=== PATIENT | female | born 1960 | race Caucasian/White ===

== ENCOUNTER 2019-05-11 06:00 | Outpatient (RCR) | payer MEDICARE, MEDICAID, SELFPAY | END 2019-06-06 00:01 | LOC: LAB 06:00 | PROVIDERS: Family Provider Family Medicine; Visit Provider Family Medicine | DX: E87.6 Hypokalemia (principal); G35 Multiple sclerosis | CPT/HCPCS: 80053; 80061; 84439; 84443; 85025 ==

== ENCOUNTER 2019-11-29 13:06 | Outpatient (CLI) | payer MEDICARE, MEDICAID, SELFPAY ==
--- NOTE | 2019-11-29 13:00 | XRR_ITS ---
PROCEDURE INFORMATION: Exam: XR Abdomen, 1 View Exam date and time: 11/29/2019 2:01 PM Age: 59 years old Clinical indication: Condition or disease; Other: Calculus of urinary bladder; Prior surgery; Surgery date: 6+ months; Surgery type: PT has peg tube also. Kidney; Additional info: 6 month check TECHNIQUE: Imaging protocol: XR of the abdomen. Views: Frontal supine view of the abdomen. 1 View. COMPARISON: No relevant prior studies available. FINDINGS: Tubes, catheters and devices: A suprapubic catheter is present in the projection of the central pelvis. Gastrointestinal tract: Normal. No bowel dilation. There is moderate diffuse colonic fecal stasis present. A gastrostomy tube is in place in the stomach. Organs: There are 2 circumscribed calcified densities which likely represent stones within the urinary bladder. These densities measure 19.8 mm x 30 mm and 18.2 mm x 26.6 mm. Bones/joints: Unremarkable. The kidneys are obscured by bowel gas XR/XR [id number] IMPRESSION: 1. Negative for acute GI abnormalities. 2. Diffuse moderate colonic fecal stasis . 3. There are 2 calcified urinary bladder stones 4. Gastrostomy tube is in the a a stomach 5. Suprapubic catheter is in the central pelvis
== END 2019-11-29 13:07 | disposition home or self-care (01) ==
LOC: RAD 13:06
PROVIDERS: PCP Family Medicine; Visit Provider Urology
DX: N21.0 Calculus in bladder (principal); Z96.0 Presence of urogenital implants
CPT/HCPCS: 74018

== ENCOUNTER 2021-12-20 16:00 | Inpatient (IN) | payer MEDICARE, MEDICAID, SELFPAY ==
--- NOTE | 2021-12-20 16:22 | XRR_ITS ---
PROCEDURE INFORMATION: Exam: XR Chest Exam date and time: 12/20/2021 5:38 PM Age: 61 years old Clinical indication: Shortness of breath; Additional info: Covid TECHNIQUE: Imaging protocol: Radiologic exam of the chest. Views: 1 view. COMPARISON: CR Chest 1 [place] [id number] 05/01/2019 11:41 AM FINDINGS: Lungs: The lung bases are suboptimally assessed due to technique however the upper lungs are clear of focal consolidation. There is an ill-defined right medial basilar opacity which may represent posterior basilar atelectasis versus pneumonia. Clinical correlation and follow-up should be obtained. A dense opacity in the left retrocardiac region is again noted, likely left lower lobe collapse as noted on prior CT exam. Findings suggest chronic or recurrent central airway obstruction. Follow-up reassessment by CT should be considered to exclude postobstructive process. Pleural spaces: Unremarkable. No pleural effusion. No pneumothorax. Heart/Mediastinum: Cardiac silhouette appears normal in size. No obvious vascular congestion. Bones/joints: No acute osseous findings. Other findings: Single view was submitted. XR/XR chest 1V portable [id number] IMPRESSION: Probable right medial basilar opacity and left lower lobe collapse as described above.
--- NOTE | 2021-12-20 16:41 | ED_ITS ---
Documented by User: Harman Sandoval MD 12/22/21 02:30 HPI - SOB/Dyspnea General: Chief Complaint: COVID symptoms Stated Complaint: sob covid positive Time Seen by Provider: 12/20/21 16:41 Limitations: altered mental status and physical limitation History of Present Illness: HPI Narrative: Ms. Wing is a 61-year-old lady with, per chart review, severe multiple sclerosis, history of suprapubic catheter with history of recurrent urosepsis presenting for shortness of breath with reported COVID-positive test. History is otherwise severely limited as the patient provides no clinical history and report from EMS was limited. Additionally assisted did not call a report on this patient. The course, associated symptoms, intensity, exacerbating or relieving factors, or any other meaningful history are unclear at time of assessment. Supplemental information provided by patient's mother is that typically the patient is more talkative and approximately 10 days ago began to deteriorate as she typically does when she gets sick. She has been treated in the outpatient setting for urinary tract infection though unsure of exactly what antibiotic. She is nonambulatory at baseline however patient's mother largely seems to minimize extent of MS related debility however I suppose it is possible that this is markedly different than patient's baseline. Review of Systems General: Reports: ROS unobtainable due to medical condition PFSH ED PFSH: Medical History (Updated 12/21/21 @ 15:09 by Rocky Pool MD) Bladder stone Blocked suprapubic catheter Feeding by G-tube History of ESBL E. coli infection Multiple sclerosis Port-A-Cath in place Recurrent UTI Suprapubic catheter VRE (vancomycin-resistant Enterococci) infection Surgical History (Updated 12/21/21 @ 15:07 by Rocky Pool MD) S/P percutaneous endoscopic gastrostomy (PEG) tube placement Family History Brother Multiple sclerosis Father , AT AGE 80 Polycythemia Social History Smoking and tobacco status: never smoked Alcohol intake: never Housing: Senior Care Marital status: Single Current occupational status: disabled History of recent travel: No Physical Exam Const: COMMON NORMALS: alert GENERAL APPEARANCE: ill appearing and frail appearing HENMT: COMMON NORMALS: normocephalic and atraumatic HEAD & SCALP: normocephalic and atraumatic OTHER: Dry mucous membranes Eye: COMMON NORMALS: conjunctivae normal CONJUNCTIVA: Yes conjunctivae normal SCLERA: sclerae normal Neck/C-Spine: COMMON NORMALS: supple GENERAL: Yes trachea midline Resp: EFFORT & INSPECTION: Yes tachypneic AUSCULTATION: rhonchi Cardio: COMMON NORMALS: regular rhythm RATE: tachycardic RHYTHM: regular rhythm GI: COMMON NORMALS: Soft to palpation PALPATION: Yes Soft to palpation and No Tenderness to palpation present (GI) Extremity: NARRATIVE EXTREMITY EXAM: Apparent contracture deformities GENERAL: Yes normal exam except as noted and No edema Neuro: SENSORIUM/ORIENTATION: Yes alert, Yes Orientation impaired and Yes somnolent Psych: MEMORY/COGNITION: Yes memory grossly impaired and Yes cognition grossly impaired Procedures Central Line Placement Right Femoral: Time Out Performed: Yes Patient Placed on Monitor/Pulse Ox: Yes MD Prep: mask, gown and gloves Central Line Prep: Povidone-Iodine 1%, Chlorhexidine scrub and sterile drapes applied Local Anesthetic: lidocaine 1% and with epi Amount of anesthesia used (mL): 6 Ultrasound Used for Placement: Yes Central Line Lumen Inserted: triple Post Procedure: sutured in place, good blood return, all ports aspirated, flushed, capped and sterile dressing applied Post Procedure X-Ray: tip of catheter in good position Patient Tolerated Procedure: well Complications: none Course 2 ED course: - Patient was seen and evaluated by me at bedside - Patient placed on cardiac monitors, IV access obtained - Initial evaluation notable for ill appearance, limited history as above - Outside records were requested and patient does have positive COVID test from sending facility - Extensive time was spent attempting to obtain labs and IV access. Ultimately, once patient's mother arrived and we obtained consent for central line this was placed and postplacement x-ray was reviewed - Labs and xrays personally interpreted by me - Imaging notable for bibasilar opacities on chest x-ray. CT head negative for acute pathology. CT chest abdomen pelvis notable for bilateral lower lobe pneumonia. Additionally patient has bladder stones which are longstanding, there is mucosal thickening of the distal rectosigmoid colon of unclear etiology. Additional renal stones with mild fullness of renal pelvis. - Labs notable for leukocytosis with neutrophil predominance. Metabolic panel with evidence of dehydration including hyponatremia. CRP elevated. Urinalysis still concerning for urinary tract infection. - Upon serial reexamination after treatment the patient was mildly improved with IV fluids and broad-spectrum antibiotics though still remains markedly ill. In addition to antibiotics and 30 cc/kg fluid bolus I ordered remdesivir for COVID positive pneumonia with new oxygen requirement. - Based on patient history, evaluation, and testing as interpreted the most likely cause of the patient's condition is multifactorial including exacerbation of underlying medical conditions, sepsis secondary to likely urinary tract infection, COVID 19 with acute hypoxic respiratory failure requiring supplemental oxygen. - Discussed with hospitalist service and given high degree of comorbidities and high acuity of patient condition hospitalist recommends consideration of transfer. - The results of ED evaluation were discussed with the patient's mother including plan for transfer due to requirement for level of care not available if discharged to prevent significant worsening/deterioration. Patient likely needs neurology as we do not have on-call as well as other specialty services - Patient care handed off to overnight ED physician Dr. Dickson pending continued search for accepting facility. Note: Click bubbles or prepopulated bobby in note writing are used for assistance with data collection and billing and are inherently more limited than narrative and other text portions of this note. Please use narrative for additional clinical history and defer to narrative/free test for any case of contradictory information. If information appears in only free text or click bubble it should be considered present or absent as reported. Please contact note travel writer for clarifications of clinical information or contradictory information. MDM is a brief summary, contradictory or erroneous seeming information should be clarified and full note should be reviewed. Vital Signs: Vital signs: Vital Signs Temperature 98.1 F 12/21/21 21:45 Pulse Rate 81 12/22/21 00:30 Respiratory Rate 21 H 12/22/21 00:30 Blood Pressure 163/77 12/22/21 00:30 Pulse Oximetry 94 12/22/21 00:30 MDM - SOB/Dyspnea Medical Decision Making 61-year-old lady with history of severe MS presenting to the emergency department due to COVID 19 with new oxygen requirement. Additionally patient has reportedly been treated for urinary tract infection for approximately 8 days. Patient is ill in appearance and after unfortunate delay due to difficulty obtaining IV access patient found to have likely COVID-pneumonia with acute hypoxic respiratory failure, questionable superimposed bacterial pneumonia, evidence of urinary tract infection. Treated with broad-spectrum antibiotics and remdesivir as well as 30 cc/kg fluid bolus. After discussion with hospitalist service we will plan to explore transfer. Patient's mother updated at bedside. Medical Records I reviewed the patient's medical records. Lab Data I reviewed the patient's lab results. : 12/21/21 06:13 12/21/21 06:13 Labs/Radiology: Radiology Impressions Chest X-Ray 12/20/21 16:22 IMPRESSION: Probable right medial basilar opacity and left lower lobe collapse as described above. Chest/Abdomen/Pelvis CT 12/20/21 18:29 IMPRESSION: Bilateral lower lobe pneumonia. IMPRESSION: 1. There are bladder stones. A percutaneous bladder catheter is in place. 2. There is mucosal thickening of the distal rectosigmoid colon. Differential includes nonspecific colitis versus neoplasm. 3. There are large right renal calculi and mild fullness of the right renal pelvis. Head CT 12/20/21 18:29 IMPRESSION: No acute intracranial findings. Pelvis X-Ray 12/20/21 23:49 IMPRESSION: Satisfactory right femoral line position. Laboratory Results WBC 15.7 10^3/uL (4.0-10.0) H 12/21/21 06:13 RBC 3.42 10^6/uL (4.1-5.3) L 12/21/21 06:13 Hgb 10.5 g/dL (11.5-15.3) L 12/21/21 06:13 Hct 28.9 % (37.0-47.0) L 12/21/21 06:13 MCV 84.5 fl (81-99) 12/21/21 06:13 MCH 30.7 pg (28.0-34.0) 12/21/21 06:13 MCHC 36.3 g/dL (30.0-36.0) H 12/21/21 06:13 RDW 13.6 % (12.1-15.1) 12/21/21 06:13 Plt Count 206 10^3/cmm (130-400) D 12/21/21 06:13 MPV 9.5 fL (7.4-10.4) 12/21/21 06:13 Neut % (Auto) 92.0 % 12/21/21 06:13 Lymph % (Auto) 3.9 % 12/21/21 06:13 [place] % (Auto) 3.2 % 12/21/21 06:13 Eos % (Auto) 0.1 % 12/21/21 06:13 Baso % (Auto) 0.2 % 12/21/21 06:13 Neut # (Auto) 14.47 10^3/uL (1.8-7.7) H 12/21/21 06:13 Lymph # (Auto) 0.6 10^3/uL (0.8-4.8) L 12/21/21 06:13 [place] # (Auto) 0.5 10^3/uL (0.2-0.9) 12/21/21 06:13 Eos # (Auto) 0.0 10^3/uL (0.0-0.8) 12/21/21 06:13 Baso # (Auto) 0.0 10^3/uL (0.0-0.1) 12/21/21 06:13 Nucleated RBC % (auto) 0 % 12/21/21 06:13 Nucleated RBCs # 0.0 /100WBC 12/21/21 06:13 Specimen Type Arterial 12/20/21 17:05 Sample Site Radial, right 12/20/21 17:05 ABG pH 7.45 (7.35-7.45) 12/20/21 17:05 ABG pCO2 36.0 mmHg (35-45) 12/20/21 17:05 ABG pO2 82.1 mmHg (80.0-100.0) 12/20/21 17:05 ABG HCO3 25.0 mmol/L (22-26) 12/20/21 17:05 ABG Base Excess 1.2 mmol/L (-2.0-2.0) 12/20/21 17:05 Bernard Test Pos 12/20/21 17:05 Hematocrit 40.8 % (37-47) 12/20/21 17:05 O2 Delivery Device Nc 12/20/21 17:05 O2 Liters/Min 5.0 % 12/20/21 17:05 FiO2 40.0 % 12/20/21 17:05 Lead Principal Technical Architect ID [id number] 12/20/21 17:05 Sodium 136 mmol/L (136-145) D 12/21/21 06:13 Potassium 3.6 mmol/L (3.5-5.1) 12/21/21 06:13 Chloride 102 mmol/L (98-107) 12/21/21 06:13 Carbon Dioxide 22 mmol/L (22-29) 12/21/21 06:13 Anion Gap 15.6 (5-19) 12/21/21 06:13 BUN 7 mg/dL (8-23) L 12/21/21 06:13 Creatinine 0.5 mg/dL (0.5-0.9) 12/21/21 06:13 GFR Calculation 125.9 mL/min (90-130) 12/21/21 06:13 Glucose 150 mg/dL (65-115) H 12/21/21 06:13 Calculated Osmolality 283 mOsm/kg (285-295) L 12/21/21 06:13 Lactate 1.2 mmol/L (0.5-2.2) 12/20/21 23:35 Calcium 8.0 mg/dL (8.5-10.5) L 12/21/21 06:13 Magnesium 1.7 mg/dL (1.7-2.3) 12/20/21 23:35 Total Bilirubin 0.7 mg/dL (0.15-1.2) 12/21/21 06:13 AST 11 U/L (0-32) 12/21/21 06:13 ALT 11 U/L (0-33) 12/21/21 06:13 Alkaline Phosphatase 96 IU/L (35-105) 12/21/21 06:13 Troponin T Baseline 14 ng/L (0-10) H 12/20/21 23:35 Troponin T 120 Minute 12.31 ng/L (0-10) H 12/21/21 02:00 Delta Troponin T -1.69 ABS# (0-10) L 12/21/21 02:00 Troponin T Hi Sens 6Hr 12.91 ng/L (0-10) H 12/20/21 06:13 Troponin T Hi Sens 6Hr Delta -1.09 ng/L (0-12) L 12/20/21 06:13 C-Reactive Protein 232.9 mg/L (0.0-4.9) H 12/20/21 23:35 NT-Pro-B Natriuret Pep 490 pg/mL (0-125) H 12/20/21 23:35 Total Protein 5.7 g/dL (6.6-8.7) L 12/21/21 06:13 Albumin 2.8 g/dL (3.5-5.2) L 12/21/21 06:13 Globulin 2.9 g/dL (1.3-4.6) 12/21/21 06:13 Procalcitonin 0.22 ng/mL (0-0.5) 12/20/21 23:35 TSH 2.22 uIU/mL (0.27-4.20) 12/20/21 23:35 Urine Color Lisa (Yellow) 12/20/21 18:05 Urine Appearance Hazy (CLEAR) A 12/20/21 18:05 Urine pH 6.5 (5-7) 12/20/21 18:05 Ur Specific [place] 1.015 (1.005-1.030) 12/20/21 18:05 Urine Protein 1+ (Negative) H 12/20/21 18:05 Urine Glucose (UA) Norm (Normal) 12/20/21 18:05 Urine Ketones 3+ (Negative) H 12/20/21 18:05 Urine Blood 3+ (Negative) H 12/20/21 18:05 Urine Nitrate Positive (Negative) H 12/20/21 18:05 Urine Bilirubin Neg (Negative) 12/20/21 18:05 Urine Urobilinogen Norm mg/dL (Negative) 12/20/21 18:05 Ur Leukocyte Esterase 2+ (Negative) H 12/20/21 18:05 Urine RBC 25-40 /hpf (0-2) H 12/20/21 18:05 Urine WBC 80-100 /hpf (0-5) H 12/20/21 18:05 Ur Squamous Epith Cells 0-4 /hpf (0-5) H 12/20/21 18:05 Amorphous Sediment Not Reportable 12/20/21 18:05 Urine Bacteria 3+ /hpf (NONE) H 12/20/21 18:05 Critical Care Time Critical Care Time: Critical Care Time: Yes Total Critical Care Time: 140 Attestation: Due to a high probability of clinically significant, possibly life threatening deterioration, the patient required my highest level of attention and preparedness to intervene emergently and I personally spent this critical care time directly and personally managing the patient. This critical care time included obtaining a history; examining the patient; pulse oximetry; ordering and review of laboratory and imaging studies; arranging urgent treatment with development of a management plan; evaluation of patient's response to treatment; frequent reassessment; and, discussions with other providers as applicable. It was exclusive of separately billable procedures. Primary system involved is ID Discharge Plan Discharge Admit Provider: Rocky Pool Clinical Impression: Recurrent UTI, Sepsis, COVID-19, Acute respiratory failure with hypoxia, Multiple sclerosis Condition: Stable Coding Level of Care Code ED Substance Abuse Technician for Chg Fwd Exam Comprehensive Documented by User: Martin Dickson, 12/21/21 15:52 HPI - SOB/Dyspnea General: Chief Complaint: COVID symptoms Stated Complaint: sob covid positive Time Seen by Provider: 12/20/21 16:41 PFSH ED PFSH: Medical History (Updated 12/21/21 @ 15:09 by Rocky Pool MD) Bladder stone Blocked suprapubic catheter Feeding by G-tube History of ESBL E. coli infection Multiple sclerosis Port-A-Cath in place Recurrent UTI Suprapubic catheter VRE (vancomycin-resistant Enterococci) infection Surgical History (Updated 12/21/21 @ 15:07 by Rocky Pool MD) S/P percutaneous endoscopic gastrostomy (PEG) tube placement Family History Brother Multiple sclerosis Father , AT AGE 80 Polycythemia Social History Smoking and tobacco status: never smoked Alcohol intake: never Housing: Senior [facility] Marital status: Single Current occupational status: disabled History of recent travel: No Course Vital Signs: Vital signs: Vital Signs Temperature 98.1 F 12/21/21 21:45 Pulse Rate 81 12/22/21 00:30 Respiratory Rate 21 H 12/22/21 00:30 Blood Pressure 163/77 12/22/21 00:30 Pulse Oximetry 94 12/22/21 00:30 MDM - SOB/Dyspnea Medical Decision Making 61-year-old lady with history of severe MS presenting to the emergency department due to COVID 19 with new oxygen requirement. Additionally patient has reportedly been treated for urinary tract infection for approximately 8 days. Patient is ill in appearance and after unfortunate delay due to difficulty obtaining IV access patient found to have likely COVID-pneumonia with acute hypoxic respiratory failure, questionable superimposed bacterial pneumonia, evidence of urinary tract infection. Treated with broad-spectrum antibiotics and remdesivir as well as 30 cc/kg fluid bolus. After discussion with hospitalist service we will plan to explore transfer. Patient's mother updated at bedside. 61-year-old patient checked out to me at shift change by the previous physician. This lady appears to be quite ill. Her white blood cell count is 23. She is getting empiric antibiotic therapy, maintenance fluid at this point after bolus, remdesivir for COVID-19 infection. Given her complexity, and the fact that currently we do not have neurology service, we are exploring transfer options. She will be checked out to the day physician at shift change as well Lab Data : 12/21/21 06:13 12/21/21 06:13 Labs/Radiology: Radiology Impressions Chest X-Ray 12/20/21 16:22 IMPRESSION: Probable right medial basilar opacity and left lower lobe collapse as described above. Chest/Abdomen/Pelvis CT 12/20/21 18:29 IMPRESSION: Bilateral lower lobe pneumonia. IMPRESSION: 1. There are bladder stones. A percutaneous bladder catheter is in place. 2. There is mucosal thickening of the distal rectosigmoid colon. Differential includes nonspecific colitis versus neoplasm. 3. There are large right renal calculi and mild fullness of the right renal pelvis. Head CT 12/20/21 18:29 IMPRESSION: No acute intracranial findings. Pelvis X-Ray 12/20/21 23:49 IMPRESSION: Satisfactory right femoral line position. Laboratory Results WBC 15.7 10^3/uL (4.0-10.0) H 12/21/21 06:13 RBC 3.42 10^6/uL (4.1-5.3) L 12/21/21 06:13 Hgb 10.5 g/dL (11.5-15.3) L 12/21/21 06:13 Hct 28.9 % (37.0-47.0) L 12/21/21 06:13 MCV 84.5 fl (81-99) 12/21/21 06:13 MCH 30.7 pg (28.0-34.0) 12/21/21 06:13 MCHC 36.3 g/dL (30.0-36.0) H 12/21/21 06:13 RDW 13.6 % (12.1-15.1) 12/21/21 06:13 Plt Count 206 10^3/cmm (130-400) D 12/21/21 06:13 MPV 9.5 fL (7.4-10.4) 12/21/21 06:13 Neut % (Auto) 92.0 % 12/21/21 06:13 Lymph % (Auto) 3.9 % 12/21/21 06:13 [place] % (Auto) 3.2 % 12/21/21 06:13 Eos % (Auto) 0.1 % 12/21/21 06:13 Baso % (Auto) 0.2 % 12/21/21 06:13 Neut # (Auto) 14.47 10^3/uL (1.8-7.7) H 12/21/21 06:13 Lymph # (Auto) 0.6 10^3/uL (0.8-4.8) L 12/21/21 06:13 [place] # (Auto) 0.5 10^3/uL (0.2-0.9) 12/21/21 06:13 Eos # (Auto) 0.0 10^3/uL (0.0-0.8) 12/21/21 06:13 Baso # (Auto) 0.0 10^3/uL (0.0-0.1) 12/21/21 06:13 Nucleated RBC % (auto) 0 % 12/21/21 06:13 Nucleated RBCs # 0.0 /100WBC 12/21/21 06:13 Specimen Type Arterial 12/20/21 17:05 Sample Site Radial, right 12/20/21 17:05 ABG pH 7.45 (7.35-7.45) 12/20/21 17:05 ABG pCO2 36.0 mmHg (35-45) 12/20/21 17:05 ABG pO2 82.1 mmHg (80.0-100.0) 12/20/21 17:05 ABG HCO3 25.0 mmol/L (22-26) 12/20/21 17:05 ABG Base Excess 1.2 mmol/L (-2.0-2.0) 12/20/21 17:05 Bernard Test Pos 12/20/21 17:05 Hematocrit 40.8 % (37-47) 12/20/21 17:05 O2 Delivery Device Nc 12/20/21 17:05 O2 Liters/Min 5.0 % 12/20/21 17:05 FiO2 40.0 % 12/20/21 17:05 Lead Principal Technical Architect ID [id number] 12/20/21 17:05 Sodium 136 mmol/L (136-145) D 12/21/21 06:13 Potassium 3.6 mmol/L (3.5-5.1) 12/21/21 06:13 Chloride 102 mmol/L (98-107) 12/21/21 06:13 Carbon Dioxide 22 mmol/L (22-29) 12/21/21 06:13 Anion Gap 15.6 (5-19) 12/21/21 06:13 BUN 7 mg/dL (8-23) L 12/21/21 06:13 Creatinine 0.5 mg/dL (0.5-0.9) 12/21/21 06:13 GFR Calculation 125.9 mL/min (90-130) 12/21/21 06:13 Glucose 150 mg/dL (65-115) H 12/21/21 06:13 Calculated Osmolality 283 mOsm/kg (285-295) L 12/21/21 06:13 Lactate 1.2 mmol/L (0.5-2.2) 12/20/21 23:35 Calcium 8.0 mg/dL (8.5-10.5) L 12/21/21 06:13 Magnesium 1.7 mg/dL (1.7-2.3) 12/20/21 23:35 Total Bilirubin 0.7 mg/dL (0.15-1.2) 12/21/21 06:13 AST 11 U/L (0-32) 12/21/21 06:13 ALT 11 U/L (0-33) 12/21/21 06:13 Alkaline Phosphatase 96 IU/L (35-105) 12/21/21 06:13 Troponin T Baseline 14 ng/L (0-10) H 12/20/21 23:35 Troponin T 120 Minute 12.31 ng/L (0-10) H 12/21/21 02:00 Delta Troponin T -1.69 ABS# (0-10) L 12/21/21 02:00 Troponin T Hi Sens 6Hr 12.91 ng/L (0-10) H 12/20/21 06:13 Troponin T Hi Sens 6Hr Delta -1.09 ng/L (0-12) L 12/20/21 06:13 C-Reactive Protein 232.9 mg/L (0.0-4.9) H 12/20/21 23:35 NT-Pro-B Natriuret Pep 490 pg/mL (0-125) H 12/20/21 23:35 Total Protein 5.7 g/dL (6.6-8.7) L 12/21/21 06:13 Albumin 2.8 g/dL (3.5-5.2) L 12/21/21 06:13 Globulin 2.9 g/dL (1.3-4.6) 12/21/21 06:13 Procalcitonin 0.22 ng/mL (0-0.5) 12/20/21 23:35 TSH 2.22 uIU/mL (0.27-4.20) 12/20/21 23:35 Urine Color Lisa (Yellow) 12/20/21 18:05 Urine Appearance Hazy (CLEAR) A 12/20/21 18:05 Urine pH 6.5 (5-7) 12/20/21 18:05 Ur Specific [place] 1.015 (1.005-1.030) 12/20/21 18:05 Urine Protein 1+ (Negative) H 12/20/21 18:05 Urine Glucose (UA) Norm (Normal) 12/20/21 18:05 Urine Ketones 3+ (Negative) H 12/20/21 18:05 Urine Blood 3+ (Negative) H 12/20/21 18:05 Urine Nitrate Positive (Negative) H 12/20/21 18:05 Urine Bilirubin Neg (Negative) 12/20/21 18:05 Urine Urobilinogen Norm mg/dL (Negative) 12/20/21 18:05 Ur Leukocyte Esterase 2+ (Negative) H 12/20/21 18:05 Urine RBC 25-40 /hpf (0-2) H 12/20/21 18:05 Urine WBC 80-100 /hpf (0-5) H 12/20/21 18:05 Ur Squamous Epith Cells 0-4 /hpf (0-5) H 12/20/21 18:05 Amorphous Sediment Not Reportable 12/20/21 18:05 Urine Bacteria 3+ /hpf (NONE) H 12/20/21 18:05 Discharge Plan Discharge Admit Provider: Rocky Pool Clinical Impression: Recurrent UTI, Sepsis, COVID-19, Acute respiratory failure with hypoxia, Multiple sclerosis Condition: Stable Coding Level of Care Code ED Substance Abuse Technician for Chg Fwd Exam Comprehensive Documented by User: Rory Lima DO 12/21/21 12:44 HPI - SOB/Dyspnea General: Chief Complaint: COVID symptoms Stated Complaint: sob covid positive Time Seen by Provider: 12/20/21 16:41 PFSH ED PFSH: Medical History (Updated 12/21/21 @ 15:09 by Rocky Pool MD) Bladder stone Blocked suprapubic catheter Feeding by G-tube History of ESBL E. coli infection Multiple sclerosis Port-A-Cath in place Recurrent UTI Suprapubic catheter VRE (vancomycin-resistant Enterococci) infection Surgical History (Updated 12/21/21 @ 15:07 by Rocky Pool MD) S/P percutaneous endoscopic gastrostomy (PEG) tube placement Family History Brother Multiple sclerosis Father , AT AGE 80 Polycythemia Social History Smoking and tobacco status: never smoked Alcohol intake: never Housing: Senior Care Marital status: Single Current occupational status: disabled History of recent travel: No Course Reevaluation(s): Reevaluation #1: This note is for continuation purposes. I am one of the on-duty emergency physicians this date. This patient still is being held in the emergency department pending transfer. She has still receiving supplemental oxygen, IV fluids, antibiotics as previously prescribed. Vital signs are noted. I have asked the hospitalist team to also round on her this morning for any treatment recommendations were changes indicated. We have been in contact with [facility] this morning and she has pending transfer. If by later this morning or early afternoon we have not affected that transfer we may discuss with family regarding alternative transfer sites. Time: 09:28 Vital Signs: Vital signs: Vital Signs Temperature 98.1 F 12/21/21 21:45 Pulse Rate 81 12/22/21 00:30 Respiratory Rate 21 H 12/22/21 00:30 Blood Pressure 163/77 12/22/21 00:30 Pulse Oximetry 94 12/22/21 00:30 MDM - SOB/Dyspnea Lab Data : 12/21/21 06:13 12/21/21 06:13 Labs/Radiology: Radiology Impressions Chest X-Ray 12/20/21 16:22 IMPRESSION: Probable right medial basilar opacity and left lower lobe collapse as described above. Chest/Abdomen/Pelvis CT 12/20/21 18:29 IMPRESSION: Bilateral lower lobe pneumonia. IMPRESSION: 1. There are bladder stones. A percutaneous bladder catheter is in place. 2. There is mucosal thickening of the distal rectosigmoid colon. Differential includes nonspecific colitis versus neoplasm. 3. There are large right renal calculi and mild fullness of the right renal pelvis. Head CT 12/20/21 18:29 IMPRESSION: No acute intracranial findings. Pelvis X-Ray 12/20/21 23:49
--- NOTE | 2021-12-20 16:44 | ECG_ITS ---
[facility] Test Date: 2021-12-20 Pat Name: Zoie Wing Department: Room: Gender: Female Financial Solutions Advisor: : 1960 Requested By: Harman Sandoval Order Number: [id number] Nathaly MD: Rick Thompson M.D. Measurements Intervals [place] Rate: 95 P: 20 KS: 150 QRS: -9 QRSD: 77 T: 181 QT: 349 QTc: 440 Interpretive Statements SINUS RHYTHM SEPTAL MYOCARDIAL INFARCTION , OF INDETERMINATE AGE [40+ ms Q WAVE IN V1/V2] MARKED T-WAVE ABNORMALITY, CONSIDER ANTEROLATERAL ISCHEMIA [-0.5+ mV T WAVE IN I/aVL/V3-V6] MODERATE T-WAVE ABNORMALITY, CONSIDER INFERIOR ISCHEMIA [-0.1+ mV T WAVE IN II/aVF] Compared to ECG 05/01/2019 11:16:08 Myocardial infarct finding now present Possible ischemia now present Left anterior fascicular block no longer present T-wave abnormality still present Electronically Signed On 12-22-2021 8:10:02 CDT by Rick Thompson M.D. [id number]
[2021-12-20 16:54] VITALS: BP 132/77; PULSE 100; RESP 20; O2SAT 96; BMI 19.5
[2021-12-20 17:21] LABS: ABG PH Result 7.45 (7.35-7.45); Arterial Blood Gas Hematocrit 40.8 % (37-47); Base Excess ABG 1.2 mmol/L (-2.0-2.0); Blood Gas Allen Test Pos; Blood Gas Operator Identificat GD; Blood Gas Sample Site Radial, right; Blood Gas Sample Type Arterial; Oxygen Device NC; PO2 ABG 82.1 mmHg (80.0-100.0)
[2021-12-20 18:15] VITALS: BP 132/77; PULSE 100; RESP 22; O2SAT 97
[2021-12-20 18:16] LABS: Protein Urine 1+ (Negative); Specific Gravity, Urine 1.015 (1.005-1.030); Urine Appearance Hazy (CLEAR); Urine Color Amber (Yellow); pH Urine 6.5 (5-7)
[2021-12-20 18:17] LABS: Add Urine Microscopic? YES; Bilirubin Urine Neg (Negative); Blood Urine 3+ (Negative); Glucose Urine UA Norm (Normal); Ketones Urine 3+ (Negative); Leukocyte Esterase Urine 2+ (Negative); Nitrate Urine Positive (Negative); Urobilinogen Urine Norm (Negative)
--- NOTE | 2021-12-20 18:29 | CTR_ITS ---
PROCEDURE INFORMATION: Exam: CT Head Without Contrast Exam date and time: 12/20/2021 7:02 PM Age: 61 years old Clinical indication: Altered mental status/memory loss; Confusion or disorientation; Patient HX: HX of ms w worsening AMS TECHNIQUE: Imaging protocol: Computed tomography of the head without contrast. Radiation optimization: All CT scans at this facility use at least one of these dose optimization techniques: automated exposure control; mA and/or kV adjustment per patient size (includes targeted exams where dose is matched to clinical indication); or iterative reconstruction. COMPARISON: CT head wo con* [id number] 07/07/2018 3:04 PM RADIATION DOSE METRICS: Total DLP (mGy-cm): 1119.6 FINDINGS: Brain: Mild hypodense changes are noted in the bilateral periventricular regions, likely related to chronic microvascular ischemic disease. There is moderate brain parenchymal atrophy. No acute intracranial hemorrhage, mass effect or midline shift. These findings are stable. Cerebral ventricles: No pathologic ventricular dilatation. Paranasal sinuses: Visualized sinuses are unremarkable. No fluid levels. Mastoid air cells: Visualized mastoid air cells are well aerated. Bones/joints: Unremarkable. No acute fracture. Soft tissues: Unremarkable. CT/CT head wo con* [id number] IMPRESSION: No acute intracranial findings.
--- NOTE | 2021-12-20 18:29 | CTR_ITS ---
PROCEDURE INFORMATION: Exam: CT Chest Without Contrast; Diagnostic Exam date and time: 12/20/2021 7:04 PM Age: 61 years old Clinical indication: Fever; Prior surgery; Surgery date: 6+ months; Surgery type: Suprapubic cath; Patient HX: HX of ms w sepsis; Additional info: AMS, sepsis TECHNIQUE: Imaging protocol: Diagnostic computed tomography of the chest without contrast. Radiation optimization: All CT scans at this facility use at least one of these dose optimization techniques: automated exposure control; mA and/or kV adjustment per patient size (includes targeted exams where dose is matched to clinical indication); or iterative reconstruction. COMPARISON: CT chest wo con [id number] 04/27/2019 11:32 AM RADIATION DOSE METRICS: Total DLP (mGy-cm): 1049.8 FINDINGS: Lungs: There are large consolidated regions in the bilateral lower lobes consistent with atelectasis and or pneumonia. Multifocal flocculated consolidation is present in the lower lobes as well consistent with pneumonia. Pleural spaces: Unremarkable. No pneumothorax. No pleural effusion. Heart: Unremarkable. No coronary artery calcifications. No cardiomegaly. No pericardial effusion. Lymph nodes: Unremarkable. No enlarged lymph nodes. Vasculature: Unremarkable. No aortic aneurysm. Bones/joints: Unremarkable. No acute fracture. Soft tissues: Unremarkable. PROCEDURE INFORMATION: Exam: CT Abdomen And Pelvis Without Contrast Exam date and time: 12/20/2021 7:04 PM Age: 61 years old Clinical indication: Fever; Prior surgery; Surgery date: 6+ months; Surgery type: Suprapubic cath; Patient HX: HX of ms w sepsis; Additional info: AMS, sepsis TECHNIQUE: Imaging protocol: Computed tomography of the abdomen and pelvis without contrast. Radiation optimization: All CT scans at this facility use at least one of these dose optimization techniques: automated exposure control; mA and/or kV adjustment per patient size (includes targeted exams where dose is matched to clinical indication); or iterative reconstruction. COMPARISON: CT abdomen pelvis wo con [id number] 04/20/2019 4:30 AM RADIATION DOSE METRICS: Total DLP (mGy-cm): 1049.8 FINDINGS: Tubes, catheters and devices: There is a percutaneous G-tube in the stomach. Percutaneous bladder catheter is in place. There are stones in the bladder the larger of which measures 3.2 cm. Liver: Normal. No mass. Gallbladder and bile ducts: Normal. No calcified stones. No ductal dilation. Pancreas: Normal. No ductal dilation. Spleen: Small incidental splenule. Adrenal glands: Normal. No mass. Kidneys and ureters: There are large right renal calculi the larger of which is positioned in the right renal pelvis and measures 2.2 cm in the transverse dimension. There is mild fullness of the right renal pelvis. There are punctate nonobstructing left renal calculi. Stomach and bowel: There is mucosal thickening of the distal rectosigmoid colon. Appendix: No evidence of appendicitis. Intraperitoneal space: Unremarkable. No free air. No significant fluid collection. Vasculature: Unremarkable. No abdominal aortic aneurysm. Lymph nodes: Unremarkable. No enlarged lymph nodes. Urinary bladder: See Tubes, catheters and devices finding. Reproductive: There is a 3.1 cm cyst with benign features in the right ovary. Bones/joints: There is a chronic compression deformity of the L4 superior endplate, similar to the prior CT scan. Soft tissues: Unremarkable. [place] [id number] IMPRESSION: Bilateral lower lobe pneumonia. IMPRESSION: 1. There are bladder stones. A percutaneous bladder catheter is in place. 2. There is mucosal thickening of the distal rectosigmoid colon. Differential includes nonspecific colitis versus neoplasm. 3. There are large right renal calculi and mild fullness of the right renal pelvis.
[2021-12-20 18:36] LABS: RBC Urine 25-40 /hpf (0-2)
[2021-12-20 18:37] LABS: Add Urine Culture? Yes; Bacteria Urine 3+ /hpf; Squamous Epithelial Cell Urine 0-4 /hpf (0-5); WBC Urine 80-100 /hpf (0-5)
--- NOTE | 2021-12-20 18:44 | ECG_ITS ---
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 Measurements Intervals [place] Rate: 97 P: 37 SC: 148 QRS: -7 QRSD: 77 T: 203 QT: 349 QTc: 445 Interpretive Statements SINUS RHYTHM POSSIBLE RIGHT VENTRICULAR CONDUCTION DELAY [RSR (QR) IN V1/V2] ST DEVIATION AND MODERATE T-WAVE ABNORMALITY, CONSIDER ANTEROLATERAL ISCHEMIA [-0.1+ mV T-WAVE IN V3-V6] ST DEVIATION AND MODERATE T-WAVE ABNORMALITY, CONSIDER INFERIOR ISCHEMIA [-0.1+ mV T-WAVE IN II/aVF] Compared to ECG 12/20/2021 17:29:11 Myocardial infarct finding no longer present T-wave abnormality still present Possible ischemia still present Electronically Signed On 12-22-2021 18:16:13 CDT by Rick Thompson M.D. [id number]
--- NOTE | 2021-12-20 22:44 | ECG_ITS ---
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 Measurements Intervals [place] Rate: 97 P: 14 CO: 151 QRS: -12 QRSD: 78 T: 154 QT: 341 QTc: 434 Interpretive Statements SINUS RHYTHM WITH SINUS ARRHYTHMIA POSSIBLE RIGHT VENTRICULAR CONDUCTION DELAY [RSR (QR) IN V1/V2] ST DEVIATION AND MODERATE T-WAVE ABNORMALITY, CONSIDER ANTEROLATERAL ISCHEMIA [-0.1+ mV T-WAVE IN V3-V6] Compared to ECG 12/20/2021 19:24:14 No significant changes Electronically Signed On 12-22-2021 18:15:56 CDT by Rick Thompson M.D. [id number]
[2021-12-20] MEDS: fentaNYL 50 mcg/mL INJ 2mL 25 MCG IVP (23:08)
--- NOTE | 2021-12-20 23:49 | XRR_ITS ---
PROCEDURE INFORMATION: Exam: XR Pelvis Exam date and time: 12/20/2021 11:51 PM Age: 61 years old Clinical indication: Device placement; Other: Femoral line; Additional info: Line placement TECHNIQUE: Imaging protocol: Radiologic exam of the pelvis. Views: 1 or 2 view. COMPARISON: [place] [id number] 12/20/2021 7:04 PM FINDINGS: Tubes, catheters and devices: Suprapubic catheter noted. Right femoral catheter extends into the common iliac region. Bones/joints: The bony pelvis is intact. Soft tissues: Visible soft tissues are unremarkable. Organs: There are 2 large stones in the bladder measuring up to 3.3 cm diameter. XR/XR pelvis 1-2V* [id number] IMPRESSION: Satisfactory right femoral line position.
[2021-12-20 23:50] LABS: Basophils % 0.2 %; Hematocrit 35.2 % (37.0-47.0); Hemoglobin 12.9 g/dL (11.5-15.3); Lymphocytes # 1.2 10^3/uL (0.8-4.8); Lymphocytes % 5.2 %; Mean Corpuscular HGB Conc 36.6 g/dL (30.0-36.0); Mean Corpuscular Hemoglobin 30.7 pg (28.0-34.0); Mean Corpuscular Volume 83.8 fl (81-99); Mean Platelet Volume 9.2 fL (7.4-10.4); Monocytes # 0.8 10^3/uL (0.2-0.9); Monocytes % 3.7 %; Neutrophils # 20.74 10^3/uL (1.8-7.7); Neutrophils % 90.1 %; Nucleated Red Blood Cells % 0 %; Platelet Count 303 10^3/cmm (130-400); Red Cell Distribution Width 13.5 % (12.1-15.1)
[2021-12-21] VITALS (45 sets, daily range): BP systolic 123–169; BP diastolic 61–92; PULSE 71–108; RESP 18–25; TEMP 36.6–37.1; O2SAT 92–98
[2021-12-21 00:04] LABS: Slide Review Slide Review Perform
[2021-12-21 00:06] LABS: Lactate (Lactic Acid level) 1.2 mmol/L (0.5-2.2)
[2021-12-21 00:11] LABS: Troponin(5th) Baseline 14 ng/L (0-10)
[2021-12-21 00:19] LABS: NT Pro B Type Natriuretic Pept 490 pg/mL (0-125); Procalcitonin 0.22 ng/mL (0-0.5); Thyroid Stimulating Hormone 2.22 uIU/mL (0.27-4.20)
[2021-12-21 00:30] LABS: Alanine Aminotransferase 16 U/L (0-33); Albumin Level 3.4 g/dL (3.5-5.2); Alkaline Phosphatase 97 IU/L (35-105); Anion Gap 18.2 (5-19); Aspartate Amino Transferase 15 U/L (0-32); Blood Urea Nitrogen 10 mg/dL (8-23); C Reactive Protein 232.9 mg/L (0.0-4.9); Calcium 8.8 mg/dL (8.5-10.5); Carbon Dioxide 21 mmol/L (22-29); Chloride 87 mmol/L (98-107); Globulin 3.3 g/dL (1.3-4.6); Glucose 96 mg/dL (65-115); Magnesium 1.7 mg/dL (1.7-2.3); Osmolality Calculated 253 mOsm/kg (285-295); Potassium 4.2 mmol/L (3.5-5.1); Sodium 122 mmol/L (136-145); Total Bilirubin 1.3 mg/dL (0.15-1.2); Total Protein 6.7 g/dL (6.6-8.7)
[2021-12-21] MEDS: sodium chloride 0.9% 1,360.77 ML 1360.77 ML IV (00:40)
[2021-12-21] MEDS: cefepime 2,000 MG in sodium chloride 0.9% (plus) 50 ML 100 MG IV ×3 (00:40→23:23)
[2021-12-21 00:44] LABS: Glomerular Filtration Rate 806.3 mL/min (90-130)
[2021-12-21] MEDS: vancomycin 1,000 MG in sodium chloride 0.9% 250 ML 250 MG IV ×3 (01:14→18:15)
[2021-12-21 03:16] LABS: Troponin 5 2HR 12.31 ng/L (0-10)
[2021-12-21 03:28] LABS: Troponin 5 2HR Delta -1.69 ABS# (0-10)
[2021-12-21] MEDS: remdesivir 200 MG in sodium chloride 0.9% (100 ml) 60 ML 100 MG IV (03:59)
[2021-12-21] MEDS: dextrose 5%-sod chloride 0.9% 1,000 ML 85 ML IV (05:20)
[2021-12-21] MEDS: dexamethasone 10 mg/mL INJ 6 MG IVP (05:20)
--- NOTE | 2021-12-21 05:46 | PC.PHAR ---
Pharmacokinetic dosing service Date: 12/21/21 Time: 544 Objective: Patient: Zoie Wing Floor: ED-9 Age: 61 yo Serum creatinine: 0.1 mg/dL Height: 60.0 Inches Weight (kg): 45.359 Diagnosis: Relevant medical/social history: Cultures and sensitivities: Other labs: Assessment: IBW (kg): 45.50 Dosing wt(kg): 45.359 Estimated Creatinine clearance (ml/min): 130 Clearance limited to 130 ml/min to reduce risk of overdosing. CRCL method: Cockcroft and Gault using ibw(default). Drug selected: Vancomycin Loading dose (mg): 0 Vd (liters): 40.8 (factor used: 0.9 L/kg) Grzegorz (hr-1): 0.112 Half life (hrs): 6.19 Recommended dose: 1000 mg Interval: 8 hrs Infusion time (hrs): 1.5 Predicted peak (mcg/mL): 38.1 Predicted trough (mcg/mL): 18.40 Total body weight is being used for vancomycin dosing. Renal function is stable [ ] /unstable [ ] Recommendations: Give Vancomycin 1000 mg q 8 hrs with an expected Cpeak of 38.1 mcg/ml and an expected Ctrough of 18.40 mcg/ml Renal dosing of other antibiotics (review renal dosing of other medications and list guidelines here): Thank you for the consult, will continue to follow. Signature: Kendal Espinoza [facility]
[2021-12-21 06:19] LABS: Basophils % 0.2 %; Eosinophils % 0.1 %; Hematocrit 28.9 % (37.0-47.0); Hemoglobin 10.5 g/dL (11.5-15.3); Lymphocytes # 0.6 10^3/uL (0.8-4.8); Lymphocytes % 3.9 %; Mean Corpuscular HGB Conc 36.3 g/dL (30.0-36.0); Mean Corpuscular Hemoglobin 30.7 pg (28.0-34.0); Mean Corpuscular Volume 84.5 fl (81-99); Mean Platelet Volume 9.5 fL (7.4-10.4); Monocytes # 0.5 10^3/uL (0.2-0.9); Monocytes % 3.2 %; Neutrophils # 14.47 10^3/uL (1.8-7.7); Nucleated Red Blood Cells % 0 %; Platelet Count 206 10^3/cmm (130-400); Red Blood Count 3.42 10^6/uL (4.1-5.3); Red Cell Distribution Width 13.6 % (12.1-15.1); White Blood Count 15.7 10^3/uL (4.0-10.0)
[2021-12-21 06:54] LABS: Alanine Aminotransferase 11 U/L (0-33); Albumin Level 2.8 g/dL (3.5-5.2); Alkaline Phosphatase 96 IU/L (35-105); Anion Gap 15.6 (5-19); Aspartate Amino Transferase 11 U/L (0-32); Blood Urea Nitrogen 7 mg/dL (8-23); Carbon Dioxide 22 mmol/L (22-29); Chloride 102 mmol/L (98-107); Globulin 2.9 g/dL (1.3-4.6); Glomerular Filtration Rate 125.9 mL/min (90-130); Glucose 150 mg/dL (65-115); Osmolality Calculated 283 mOsm/kg (285-295); Potassium 3.6 mmol/L (3.5-5.1); Sodium 136 mmol/L (136-145); Total Bilirubin 0.7 mg/dL (0.15-1.2); Total Protein 5.7 g/dL (6.6-8.7)
[2021-12-21 06:55] LABS: Troponin 5 6HR 12.91 ng/L (0-10)
[2021-12-21 07:02] LABS: Troponin 5 6HR Delta -1.09 ng/L (0-12)
[2021-12-21] MEDS: oxybutynin 5 mg Tablet PO (10:08)
[2021-12-21] MEDS: citalopram 20 mg Tablet PO (10:09)
[2021-12-21] MEDS: nystatin powder 15 gm Btl 1 APPLIC TOPICAL (10:09)
[2021-12-21] MEDS: baclofen 10 mg Tablet PO ×3 (10:09→20:11)
--- NOTE | 2021-12-21 12:57 | PM.HP ---
Providers/Chief Complaint Primary Care Provider: Hipolito Rothman DO Chief Complaint: sob covid positive History of Present Illness Zoie Wing is a 61 year old female with known medical history of multiple sclerosis, quadriplegia, bedbound, suprapubic catheter, PEG tube placement, h/o sepsis with UTI 2/2 ESBL Pseudomonas, VRE enterococcus, Proteus and Enterobacter in blood, assisted resident was sent in to the ER yesterday. History taken to the mother who is at bedside. Mother is the primary caregiver. As per the mother everybody in the assisted is having COVID. Patient tested positive for COVID a week ago and since she has been requiring oxygen supplementation. Today is Wednesday. At the assisted she was requiring 3 L. As per documentation her saturations were in high 80s so she was sent to the ER. Mother is not really happy why the patient is in the ER not at assisted. She thinks patient can be treated at assisted properly. Mother thinks patient is breathing at her baseline. Patient overnight was set up for transfer to [place] for further treatment of COVID-19 and multiple sclerosis. Currently on my examination patient did start was on 5 L saturating 98% which was turned down to 2 L when she was still saturating 96%. Both patient and mother are declining transfer to a different center and would want to stay at [place] for further treatment. We discussed the possible complications of treatment and the patient of COVID-19 and multiple sclerosis. Patient signals and mother states that they are okay with a complication but would want to continue treatment at [facility]. Patient is a suprapubic catheter which was changed in the last 3 weeks. She is getting feeding through PEG tube. As per mother she takes pur?ed diet mixed with water through the PEG tube with 8 to 10 ounces of free water flushes with each meal. Review of Systems General: Reports: ROS unobtainable due to mental status Medications/Allergies Home Medications Medication Instructions Recorded Confirmed Last Taken Type Lactobacillus acidophilus 10 mg PO DAILY 11/29/19 12/20/21 12/20/21 History acetaminophen 650 mg rectal 650 mg ND Q4H PRN 11/29/19 12/20/21 Unknown History suppository baclofen 10 mg tablet 10 mg PO TID 11/29/19 12/20/21 12/20/21 History bisacodyl 10 mg rectal suppository 10 mg ND DAILY PRN 11/29/19 12/20/21 Unknown History (Dulcolax (bisacodyl)) bismuth subsalicylate 525 mg/15 mL 525 mg PO Q8H PRN 11/29/19 12/20/21 Unknown History oral suspension (Pepto-Bismol Max St) carboxymethylcellulose sodium 0.5 1 drop OPHTHALMIC (EYE) Q24H PRN 11/29/19 12/20/21 Unknown History % eye drops in a dropperette (Lubricant Eye Drops) cholecalciferol (vitamin D3) 25 25 mcg PO DAILY 11/29/19 12/20/21 12/20/21 History mcg (1,000 unit) capsule cinnamon bark 500 mg capsule 500 mg PO DAILY 11/29/19 12/20/21 12/20/21 History (Cinnamon) citalopram 20 mg tablet 20 mg PO DAILY 11/29/19 12/20/21 12/19/21 History evening primrose oil 500 mg capsule 500 mg PO DAILY cap 11/29/19 12/20/21 12/20/21 History ferrous sulfate 300 mg (60 mg 900 mg PO DAILY 11/29/19 12/20/21 12/20/21 History iron)/5 mL oral liquid garlic 200 mg tablet 200 mg PO DAILY 11/29/19 12/20/21 12/20/21 History glycopyrrolate 1 mg tablet 1 mg PO DAILY tab 11/29/19 12/20/21 12/20/21 History ibuprofen 100 mg/5 mL oral 400 mg PO Q6H PRN 11/29/19 12/20/21 12/20/21 History suspension magnesium hydroxide 400 mg/5 mL 30 ml PO DAILY PRN 11/29/19 12/20/21 Unknown History oral suspension ([place] Milk of Magnesia) methenamine hippurate 1 gram tablet 1 gm PO BID 11/29/19 12/20/21 12/20/21 History nystatin 100,000 unit/gram topical 1 applic TOPICAL DAILY 11/29/19 12/20/21 Unknown History powder oxybutynin chloride 5 mg tablet 5 mg PO DAILY 11/29/19 12/20/21 12/20/21 History polyethylene glycol 3350 17 17 gm PO Q12H PRN 11/29/19 12/20/21 Unknown History gram/dose oral powder propylthiouracil 50 mg tablet 50 mg PO DAILY tab 11/29/19 12/20/21 12/20/21 History sennosides 8.6 mg-docusate sodium 2 tab-cap PO Q12H PRN 11/29/19 12/20/21 Unknown History 50 mg tablet (Senna Plus) simethicone 125 mg capsule (Gas 125 mg PO DAILY 11/29/19 12/20/21 12/20/21 History Relief (simethicone)) sodium chloride 0.65 % nasal spray 1 spray INTRANASAL Q6H PRN 11/29/19 12/20/21 Unknown History aerosol (Children's Saline Nasal [place]) albuterol sulfate 2.5 mg INHALATION Q4H PRN 07/09/20 12/20/21 Unknown History ascorbic acid (vitamin C) 1,000 mg 1,000 mg PO BID 12/20/21 12/20/21 12/20/21 History tablet (Vitamin C) atenolol 50 mg tablet 50 mg PO DAILY 12/20/21 12/20/21 12/20/21 History potassium chloride 20 mEq/15 mL 20 meq PO DAILY 12/20/21 12/20/21 12/20/21 History oral liquid Allergies Allergy/AdvReac Type Severity Reaction Status Date / Time citric acid [From Renacidin] Allergy NA Verified 05/14/21 13:32 corn Allergy itching Verified 05/14/21 13:32 cyproheptadine Allergy NA Verified 05/14/21 13:32 [From Periactin] eucalyptol Allergy NA Verified 05/14/21 13:32 [From Listerine Antiseptic] gluconic acid Allergy NA Verified 05/14/21 13:32 [From Renacidin] gluconolactone Allergy NA Verified 05/14/21 13:32 [From Renacidin] magnesium carbonate Allergy NA Verified 05/14/21 13:32 [From Renacidin] menthol Allergy NA Verified 05/14/21 13:32 [From Listerine Antiseptic] methyl salicylate Allergy NA Verified 05/14/21 13:32 [From Listerine Antiseptic] milk Allergy NA Verified 05/14/21 13:32 Penicillins Allergy NA Verified 05/14/21 13:32 thymol Allergy NA Verified 05/14/21 13:32 [From Listerine Antiseptic] PFSH Acute PFSH: Medical History (Updated 12/21/21 @ 15:09 by Rocky Pool MD) Bladder stone Blocked suprapubic catheter Feeding by G-tube History of ESBL E. coli infection Multiple sclerosis Port-A-Cath in place Recurrent UTI Suprapubic catheter VRE (vancomycin-resistant Enterococci) infection Surgical History (Updated 12/21/21 @ 15:07 by Rocky Pool MD) S/P percutaneous endoscopic gastrostomy (PEG) tube placement Family History Brother Multiple sclerosis Father , AT AGE 80 Polycythemia Social History Smoking and tobacco status: never smoked Alcohol intake: never Housing: Shelter Marital status: Single Current occupational status: disabled History of recent travel: No Vitals/I&O/Wt Last Vital Signs Temp 98.8 F 12/21/21 05:24 Pulse 108 H 12/21/21 08:00 Resp 22 H 12/21/21 08:00 BP 162/90 12/21/21 08:00 Pulse Ox 96 12/21/21 08:00 12/20/21 12/21/21 12/21/21 22:59 06:59 14:59 Intake Total 1660.77 / 1660.77 250 / 250 Balance 1660.77 / 1660.77 250 / 250 Weight last 48 hrs Weight 45.359 kg Physical Exam Narrative: General: No acute distress, AO x3, paraplegic, communicates through facial expressions HEENT: PERRLA, pupils bilaterally equal and reactive Chest: Normal vesicular breath sounds, bilateral occasional rhonchi, coarse crackles present in right lower zone CVS: S1-S2 regular, no murmurs, no tachycardia, no gallops, no rubs Abdomen: Soft, nontender, no organomegaly, bowel sounds present, suprapubic catheter present, PEG tube present Neuro: No focal deficits, no facial deformity, AO x3, paraplegic Data : 12/21/21 06:13 12/21/21 06:13 Micro: Microbiology 12/20/21 23:35 Blood Culture - Preliminary Blood SPECIMEN COLLECTED 12/20/21 23:40 Blood Culture - Preliminary Blood SPECIMEN COLLECTED A&P Assessment and plan (1) Hypoxia: Status: Acute (2) Sepsis: Status: Acute (3) COVID-19: Status: Acute (4) Suprapubic catheter: Status: Acute (5) Recurrent UTI: Status: Acute (6) Feeding by G-tube: Status: Acute (7) Multiple sclerosis: Status: Acute (8) Bladder stone: Status: Acute Plan Sepsis secondary to pneumonia: History of recurrent UTI. Multiple culprits in the past including VRE Enterococcus, ESBL E. coli. As per culture sensitivity history for now continue with vancomycin and cefepime. Sent fresh cultures, urinalysis, urine culture. Will change antibiotics as per culture results. Keep neuro pressure 65 mmHg. Hypoxia secondary to COVID-19 pneumonia: Mild to moderate disease. Oxygen supplementation keeping saturation over 88%. Dexamethasone 6 mg daily. Remdesivir to finish a 3 to 5-day course. Vitamin C, zinc. DuoNeb every 6 hour, budesonide twice daily Pulmonary toilet with incentive spirometry flutter valve. We will monitor inflammatory markers including CRP, D-dimer every 48 hours. If getting elevated will dose Actemra. D-dimer elevated. Check CTA. Patient is at baseline bedbound. Check lower limb Dopplers. For now start patient on prophylactic dose Lovenox. Will uptitrate as per CT and lower limb Doppler results. I will Check sputum culture, procalcitonin, urine Legionella, bacterial antigen, blood culture. Antibiotics as above. Given hypoxia will try to keep patient as negative as possible. Check echocardiogram. Stop IV fluids started in the ER. Hold off on Lasix. Strict input output charting, daily weights. Continue other chronic medication. Analgesia: Tylenol as needed Glycemic control: Not needed. Check A1c Nutrition: PEG tube feeds. As per mother takes pur?ed diet mixed with water with 8 to 10 ounces of free water flushes of each meal CODE STATUS: Discussed in detail with patient and mother at bedside. Would not want intubation or chest compressions. DNR/DNI. PUD prophylaxis: Protonix DVT prophylaxis: Lovenox Discharge planning: Back to SNF if patient is not on oxygen after finishing 3-day course of remdesivir. If patient is requiring oxygen then can plan to discharge after 5-day course of remdesivir. Admit to U for further management. 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
--- NOTE | 2021-12-21 13:02 | USCV_ITS ---
Zoie Wing Age: 61 Gender: F : 1960 Exam Date: 12/21/2021 16:12 Ordering Phys: Rocky Pool MD Technologist: Fuentes Nascimento Exam Location: [facility] [place] Indication: Covid / Shortness of breath BP: 148 / 79 HR: 76 Rhythm: Sinus Technical Quality: Adequate MEASUREMENTS (Male / Female) Normal Values 2D ECHO LV Diastolic Diameter PLAX 2.6 cm 4.2 - 5.9 / 3.9 - 5.3 cm LV Systolic Diameter PLAX 1.4 cm IVS Diastolic Thickness 1.1 cm 0.6 - 1.0 / 0.6 - 0.9 cm IVS Systolic Thickness 1.5 cm LVPW Diastolic Thickness 1.0 cm 0.6 - 1.0 / 0.6 - 0.9 cm LVPW Systolic Thickness 1.0 cm LVOT Diameter 2.0 cm LV Ejection Fraction 2D Teich 78.7 % LV Ejection Fraction MOD 2C 75.8 % LV Ejection Fraction 2C AL 75.8 % LA Diameter 3.2 cm LA Width 3.0 cm LA Height 4.0 cm RA Width 3.0 cm RA Height 3.9 cm M-MODE LV Diastolic Diameter MM 3.2 cm 4.2 - 5.9 / 3.9 - 5.3 cm LV Systolic Diameter MM 2.3 cm LV Ejection Fraction MM Teich 58.1 % IVS Diastolic Thickness MM 2.0 cm 0.6 - 1.0 / 0.6 - 0.9 cm IVS Systolic Thickness MM 2.1 cm LVPW Diastolic Thickness MM 1.1 cm 0.6 - 1.0 / 0.6 - 0.9 cm LVPW Systolic Thickness MM 1.4 cm RV Diastolic Diameter MM 0.9 cm Aortic Annulus Diameter 2.8 cm LA Ao Ratio MM 1.2 MV E Point Septal Separation 0.7 cm DOPPLER AV Peak Velocity 112.3 cm/s LVOT Peak Velocity 96.0 cm/s AV Area Cont Eq vti 2.8 cm squared AV Area Cont Eq pk 2.8 cm squared MV Area PHT 5.0 cm squared Mitral E to A Ratio 1.1 MV E' Velocity 43.5 cm/s Mitral E to MV E' Ratio 10.6 Mitral E to LV E' Lateral Ratio 10.9 Mitral E to LV E' Septal Ratio 10.5 TR Peak Velocity 114.3 cm/s TR Peak Gradient 5.2 mmHg TV Peak E Velocity 54.0 cm/s Right Atrial Pressure 3.0 mmHg Pulmonary Artery Systolic Pressu 8.2 mmHg PV Peak Velocity 110.0 cm/s FINDINGS Left Ventricle Normal LV size. LV systolic function is normal with EF 55-60%. No regional wall motion abnormalities are seen. Right Ventricle The right ventricle is normal in size and function. Right Atrium The right atrium is normal in size. Left Atrium The left atrium is normal in size. Mitral Valve Structurally normal mitral valve without significant stenosis or prolapse. There is trace mitral regurgitation. Aortic Valve Grossly normal without significant stenosis. There is no aortic regurgitation. Tricuspid Valve Grossly normal without significant stenosis . Trace tricuspid regurgitation. Pulmonary artery systolic pressure is normal. Pulmonic Valve Not well visualized Pericardium Normal pericardium without effusion. Aorta Normal ascending aorta dimension. IVC CONCLUSIONS LV systolic function is normal with EF 55 to 60%. Trace mitral regurgitation Trace tricuspid regurgitation Compared to prior echocardiogram from 04/25/2019, no significant changes are seen. Rick Thompson MD (Electronically Signed) Final Date: 22 December 2021 17:28 S
--- NOTE | 2021-12-21 13:03 | USCV_ITS ---
Zoie Wing Age: 61 Gender: F : 1960 Exam Date: 12/21/2021 16:26 Ordering Phys: Rocky Pool MD Technologist: Fuentes Nascimento Exam Location: [facility] [place] Indication: r/o dvt PROCEDURES: The venous duplex Doppler examination of both lower extremities was performed in the standard fashion. The following venous structures were evaluated: common femoral vein, profunda vein, proximal portion of the greater saphenous vein, superficial femoral vein, and the popliteal vein. In addition, the posterior tibial and peroneal trunk were evaluated. FINDINGS: Normal 2-D Doppler and augmentation and compressibility throughout the lower extremity venous structures. Additional imaging through the proximal calf veins also reveals no thrombus. Limited evaluation of the greater saphenous vein is patent with no thrombus.. Normal 2-D Doppler and augmentation and compressibility throughout the lower extremity venous structures. Additional imaging through the proximal calf veins also reveals no thrombus. Limited evaluation of the greater saphenous vein is patent with no thrombus.. CONCLUSIONS No evidence of right lower extremity DVT. No evidence of left lower extremity DVT. Vinnie Kate MD (Electronically Signed) Final Date: 22 December 2021 09:27 S
[2021-12-21 14:07] LABS: D Dimer 2.13 ug/mIFEU (0-0.59)
[2021-12-21 14:13] LABS: Lactic Sepsis W/Reflex 0.9 mmol/L (0.5-2.2)
[2021-12-21 14:32] LABS: C Reactive Protein 249.4 mg/L (0.0-4.9); Lactate Dehydrogenase 182 U/L (135-214); Thyroid Stimulating Hormone 0.66 uIU/mL (0.27-4.20)
[2021-12-21] MEDS: atenolol 50 mg Tablet PO (15:00)
[2021-12-21 15:05] LABS: Folate Level 8.7 ng/mL (4.8-37.3)
[2021-12-21 15:30] LABS: Vitamin B12 > 2000 pg/mL (232-1245)
[2021-12-21 15:36] LABS: Iron 19 ug/dL (37-145); Percent Saturation 16.2 % (20-50); Total Iron Binding Capacity 117 mcg/dl; Unsaturated Iron Binding 98 ug/dL (112-347)
[2021-12-21 15:41] LABS: Procalcitonin 0.18 ng/mL (0-0.5)
[2021-12-21] MEDS: enoxaparin 40 mg/0.4 mL Syringe SUBCUT (15:46)
[2021-12-21] MEDS: pantoprazole 40 mg SDV IVP (15:46)
[2021-12-21] MEDS: benzonatate 100 mg Capsule PO ×2 (15:46→20:11)
[2021-12-21] MEDS: ipratropium-albuterol 3 mL Neb INHALATION ×2 (15:47→20:51)
[2021-12-21] MEDS: ascorbic acid 500 mg Tablet 1000 MG PO (18:15)
--- NOTE | 2021-12-21 18:49 | PC.NURSE ---
Shift Note: Pt arrived to ICU this afternoon. O2 at 2lpm/NC . O2 sats at 97. Her lungs sounds are full of fluid. IV fluid has been discontinued. Mother at bedside. Mother fed pt, pureed food per the PEG tube. Mother likes to care for patient and do her ADLs. Urine output of 300ml from supra pubic catheter, which had redness at insertion site. Frequent safety and comfort rounds continue. Orders and/or nursing care completed as indicated. Patient monitored for response to intervention and treatment(s). Education provided includes Plan of care, vancomycin, baclofen, Tessalon Pearls. and vitamin C. Patient s mother verbalized understanding of plan of care and medications. Pt can verbalize but is incomprehensible to staff, mother seems to understand. Will continue to monitor.
--- NOTE | 2021-12-21 19:12 | PC.NURSE ---
Bedside report completed with TOM Prado
[2021-12-21] MEDS: budesonide 0.5 mg/2 mL Neb INHALATION (20:51)
[2021-12-22] VITALS (85 sets, daily range): BP systolic 124–192; BP diastolic 59–111; PULSE 62–99; RESP 14–24; TEMP 36.6–37.2; O2SAT 88–99
[2021-12-22] MEDS: vancomycin 1,000 MG in sodium chloride 0.9% 250 ML 250 MG IV ×3 (00:37→17:58)
[2021-12-22 01:10] LABS: Vancomycin Trough 17.7 ug/mL (10-15)
[2021-12-22] MEDS: atenolol 50 mg Tablet PO (02:18)
--- NOTE | 2021-12-22 02:19 | PC.NURSE ---
Patients blood pressure elevated, Dr. Hernandez made aware, verbal orders to give additional dose of atenolol 50mg po now received.
[2021-12-22] MEDS: ipratropium-albuterol 3 mL Neb INHALATION ×3 (02:55→20:37)
[2021-12-22] MEDS: morphine 4 mg/mL SDV 1 mL 2 MG IVP ×2 (04:40→22:49)
[2021-12-22] MEDS: remdesivir 100 MG in sodium chloride 0.9% (100 ml) 80 ML IV (05:30)
[2021-12-22 05:35] LABS: Basophils % 0.1 %; Hematocrit 32.1 % (37.0-47.0); Hemoglobin 10.8 g/dL (11.5-15.3); Lymphocytes # 0.7 10^3/uL (0.8-4.8); Lymphocytes % 5.6 %; Mean Corpuscular HGB Conc 33.6 g/dL (30.0-36.0); Mean Corpuscular Volume 89.2 fl (81-99); Mean Platelet Volume 11.3 fL (7.4-10.4); Monocytes # 0.4 10^3/uL (0.2-0.9); Monocytes % 3.1 %; Neutrophils # 10.76 10^3/uL (1.8-7.7); Neutrophils % 89.9 %; Nucleated Red Blood Cells % 0 %; Platelet Count 193 10^3/cmm (130-400); Red Cell Distribution Width 16.7 % (12.1-15.1)
[2021-12-22 06:19] LABS: Alanine Aminotransferase 16 U/L (0-33); Albumin Level 2.7 g/dL (3.5-5.2); Alkaline Phosphatase 95 IU/L (35-105); Aspartate Amino Transferase 15 U/L (0-32); Blood Urea Nitrogen 9 mg/dL (8-23); Calcium 8.4 mg/dL (8.5-10.5); Carbon Dioxide 23 mmol/L (22-29); Chloride 103 mmol/L (98-107); Globulin 3.2 g/dL (1.3-4.6); Glucose 123 mg/dL (65-115); Osmolality Calculated 282 mOsm/kg (285-295); Sodium 136 mmol/L (136-145); Total Bilirubin 0.4 mg/dL (0.15-1.2); Total Protein 5.9 g/dL (6.6-8.7)
[2021-12-22 06:26] LABS: Glomerular Filtration Rate 125.9 mL/min (90-130)
[2021-12-22 07:00] LABS: Estmated Average Glucose 71; Hemoglobin A1C 4.1 % (4.0-6.0)
[2021-12-22] MEDS: dexamethasone 10 mg/mL INJ 6 MG IVP (08:01)
[2021-12-22] MEDS: citalopram 20 mg Tablet PO (08:01)
[2021-12-22] MEDS: oxybutynin 5 mg Tablet PO (08:02)
[2021-12-22] MEDS: ascorbic acid 500 mg Tablet 1000 MG PO ×2 (08:02→17:58)
[2021-12-22] MEDS: zinc gluconate 50 mg Tablet PO (08:03)
[2021-12-22] MEDS: baclofen 10 mg Tablet PO ×3 (08:03→20:21)
[2021-12-22] MEDS: nystatin powder 15 gm Btl 1 APPLIC TOPICAL (08:16)
[2021-12-22] MEDS: budesonide 0.5 mg/2 mL Neb INHALATION ×2 (09:31→20:37)
--- NOTE | 2021-12-22 09:37 | PC.CHAP ---
Pastoral Care Encounter/Spiritual Assessment Type of Contact [] Declined mold maker plaster visit [] Patient/Family/Request visit [] Outpatient visit [] Follow-up visit [] Physician referral [] Code/Alert [x] Routine visit [] Staff referral [] Actively dying [] Patient sleeping [] Family support [] [] Out of room [] Palliative care [] [] Receiving care in room [] Pre-surgical visit [] Trauma [] Long length of stay [x] ICU visit [x] Other: isolated Relational/Emotional Strength [] Patient feels connected with others/family/visitors/staff [] Distress [] Loneliness/isolation [] Abandonment Spirituality of Patient [] Person of Hailey [] Attends Anabaptism of their Hailey [] Believes in Prayer [] Reads Bible or Scientologist materials [] There are Spiritual issues to be addressed Glass Blower Helper Interventions [x] Prayer [] Active listening [] Non-anxious presence [] Spiritual/emotional support [] Crisis/trauma care [] Spiritual counseling [] Bereavement support [] Provided bereavement packet [] Provided Bible/devotional materials [] Provided toy/stuffed animal, coloring book to patient or family member [] Provided Communion [] Anointing/[place] [] Salvation [x] Completed spiritual assessment [] Other: Impact on Illness or Injury [] Angry [] Fearful [] Anxious [] Often cries [] Exhaustion [] Unable to work [] Unable to attend evangelical [] Unable to walk/stand [] Unable to read [] Unable to drive [] Unable to eat/drink [] Unable to sleep [] Unable to be with family [] Patient intubated [] Other: Summary Time spent with patient
[2021-12-22] MEDS: iohexol 350 mg/mL 100 mL Btl IV (10:57)
[2021-12-22 11:22] LABS: Glucose Point of Care 162 mg/dL (70-110)
[2021-12-22] MEDS: cefepime 2,000 MG in sodium chloride 0.9% (plus) 50 ML 100 MG IV (11:34)
--- NOTE | 2021-12-22 13:07 | CT_ITS ---
WS: [id number] CTA OF THE CHEST WITH PULMONARY EMBOLISM PROTOCOL TECHNIQUE: High-resolution contrast enhanced CTA of the chest with coronal and sagittal reformatted i mages with pulmonary embolism protocol. MIP images are also reviewed. CLINICAL INFORMATION: covid COMPARISON: CT December 20, 2021 DLP: 478.[address] scans at [facility] use at least one of these dose optimization techniques: automated e xposure control; mA and/or kV adjustment per patient size (includes targeted exams where dose is matc hed to clinical indication); or iterative reconstruction. FINDINGS: Proximal main pulmonary arteries are normal. A few small Filling defects in a LEFT lower lobe segment al and subsegmental pulmonary artery suspicious for pulmonary embolus. No other visualized filling de fects. Consolidation with compressive atelectasis in the lung bases not significantly changed since 2021. Volume loss in the lower lobes bilaterally. Mild thoracic curve. Mild thoracic kyphosis. Normal calib er thoracic aorta. A few prominent anterior mediastinal lymph nodes unchanged. CT/CT angio chest PE protcl [id number] IMPRESSION: 1. Small filling defects in a LEFT lower lobe segmental and subsegmental pulmo nary artery suspicious for small distal pulmonary embolus. No other visualized filling defects. 2. Proximal main pulmonary arteries are normal. 3. Compressive atelectasis/consolidation in the lung bases is unchanged compar ed to December 20, 2021. 4. No other significant interval changes. Notified Dr. Jim ELY at 12/22/2021 11:14 AM.
--- NOTE | 2021-12-22 13:46 | PM.PN ---
Subjective Subjective: Patient was seen and examined this morning, no acute events overnight, continues to be on minimal supplemental oxygen. Medications: Medication Review Details: Generic Name Dose Route Start Last Admin Trade Name Adelso PRN Reason Stop Dose Admin Albuterol/Ipratrop ium 3 ml 12/21/21 15:00 12/22/21 09:31 Ipratropium-Albu terol 3 Ml Neb INHALATION 3 ml Q6H.RESPIRATORY S CH Administration Ascorbic Acid 1,000 mg 12/21/21 18:00 12/22/21 08:02 Ascorbic Acid 50 0 Mg Tablet PO 1,000 mg BID RYAN Administration Atenolol 50 mg 12/21/21 13:00 12/22/21 02:18 Atenolol 50 Mg T ablet PO 50 mg DAILY RYAN Administration Baclofen 10 mg 12/21/21 09:00 12/22/21 08:03 Baclofen 10 Mg T ablet PO 10 mg TID RYAN Administration Benzonatate 100 mg 12/21/21 15:00 12/22/21 08:03 Benzonatate 100 Mg Capsule PO Not Given TID RYAN Budesonide 0.5 mg 12/21/21 20:00 12/22/21 09:31 Budesonide 0.5 M g/2 Ml Neb INHALATION 0.5 mg BID.RESPIRATORY S CH Administration Citalopram Hydrobr omide 20 mg 12/21/21 09:00 12/22/21 08:01 Citalopram 20 Mg Tablet PO 20 mg DAILY RYAN Administration Dexamethasone 6 mg 12/21/21 03:05 12/22/21 08:01 Dexamethasone 10 Mg/Ml Inj IVP 6 mg DAILY RYAN Administration Enoxaparin Sodium 40 mg 12/21/21 15:30 12/21/21 15:46 Enoxaparin 40 Mg /0.4 Ml Syringe SUBCUT 40 mg Q24H RYAN Administration Ferrous Sulfate 900 mg 12/21/21 09:00 12/22/21 08:09 Ferrous Sulfate 300 Mg/5 Ml Udc PO Not Given DAILY RYAN Cefepime HCl 2,000 mg/ Sodium 50 mls @ 100 mls/ hr 12/21/21 12:00 12/22/21 12:30 Chloride IV Infused Q12H RYAN Infusion Protocol Remdesivir 100 mg/ Sodium 100 mls @ 100 mls /hr 12/22/21 06:00 12/22/21 06:30 Chloride IV 12/25/21 06:59 Infused Q24H RYAN Infusion Vancomycin HCl 1,0 00 mg/ 250 mls @ 250 mls /hr 12/21/21 09:00 12/22/21 09:27 Sodium Chloride IV Infused Q8H RYAN Infusion Morphine Sulfate 2 mg 12/21/21 15:00 12/22/21 04:40 Morphine 4 Mg/Ml Sdv 1 Ml IVP 2 mg Q4H PRN Administration SEVERE PAIN Nystatin 1 applic 12/21/21 09:00 12/22/21 08:16 Nystatin Powder 15 Gm Btl TOPICAL 1 applic DAILY RYAN Administration Oxybutynin Chlorid e 5 mg 12/21/21 09:00 12/22/21 08:02 Oxybutynin 5 Mg Tablet PO 5 mg DAILY RYAN Administration Pantoprazole Sodiu m 40 mg 12/21/21 16:00 12/21/21 15:46 Pantoprazole 40 Mg Sdv IVP 40 mg Q24H RYAN Administration Propylthiouracil 50 mg 12/21/21 13:00 12/22/21 08:03 Propylthiouracil 50 Mg Tablet PO Not Given DAILY RYAN Zinc Gluconate 50 mg 12/22/21 09:00 12/22/21 08:03 Zinc Gluconate 5 0 Mg Tablet PO 50 mg DAILY RYAN Administration Vitals/I&O/Wt Last Vital Signs Temp 98.0 F 12/22/21 12:30 Pulse 67 12/22/21 12:30 Resp 19 H 12/22/21 12:30 BP 137/71 12/22/21 12:30 Pulse Ox 97 12/22/21 12:30 12/21/21 12/22/21 12/22/21 22:59 06:59 14:59 Intake Total 1460 / 1710 460 / 2170 860 / 860 Output Total 300 / 300 Balance 1160 / 1410 460 / 1870 860 / 860 Weight last 48 hrs Weight 59.965 kg Weight 45.359 kg Physical Exam HENMT: COMMON NORMALS: normocephalic and atraumatic HEAD & SCALP: normocephalic and atraumatic Resp: COMMON NORMALS: clear to auscultation bilaterally EFFORT & INSPECTION: Yes symmetric chest movement AUSCULTATION: clear to auscultation bilaterally Cardio: COMMON NORMALS: regular rate, regular rhythm, S1 normal heart sound present, S2 normal heart sound present, No gallops present (Cardio), No murmurs present (Cardio), No rub (Cardio) and Peripheral pulses 2+ throughout RATE: regular rate RHYTHM: regular rhythm HEART SOUNDS: S1 normal heart sound present and S2 normal heart sound present PERIPHERAL PULSES: Peripheral pulses 2+ throughout GI: COMMON NORMALS: Normal to inspection, nondistended, normoactive bowel sounds present, Soft to palpation, non-tender, No hepatosplenomegaly present and no masses AUSCULTATION: Yes normoactive bowel sounds PALPATION: Yes Soft to palpation and Yes No hepatosplenomegaly present RECTAL EXAM: deferred Extremity: COMMON NORMALS: no clubbing, cyanosis or edema and no pedal edema Data : 12/22/21 04:20 12/22/21 05:53 Micro: Microbiology 12/20/21 18:05 Urine Culture - Final Urine,Clean Catch 12/20/21 23:40 Blood Culture - Preliminary Blood NEGATIVE TO DATE 12/20/21 23:35 Blood Culture - Preliminary Blood NEGATIVE TO DATE 12/20/21 18:05 Bacterial Antigens - Final Urine Kidney 12/20/21 18:05 Legionella Urinary Antigen - Final Urine Suprapubic A&P Assessment and plan (1) Hypoxia: Status: Acute (2) Sepsis: Status: Acute (3) COVID-19: Status: Acute (4) Suprapubic catheter: Status: Acute (5) Recurrent UTI: Status: Acute (6) Feeding by G-tube: Status: Acute (7) Multiple sclerosis: Status: Acute (8) Bladder stone: Status: Acute Plan Sepsis secondary to pneumonia: History of recurrent UTI. Multiple culprits in the past including VRE Enterococcus, ESBL E. coli. As per culture sensitivity history for now continue with vancomycin and cefepime. Sent fresh cultures, urinalysis, urine culture. Will change antibiotics as per culture results. Keep neuro pressure 65 mmHg. Hypoxia secondary to COVID-19 pneumonia: Mild to moderate disease. CT angio chest PE protcl; Small filling defects in a LEFT lower lobe segmental and subsegmental pulmonary artery suspicious for small distal pulmonary embolus. No other visualized filling defects.Proximal main pulmonary arteries are normal. Compressive atelectasis/consolidation in the lung bases. monitor inflammatory markers including CRP, D-dimer every 48 hours. Dexamethasone 6 mg daily. Remdesivir to finish a 3 to 5-day course. Vitamin C, zinc. Possible Actemra if needed DuoNeb every 6 hour, budesonide twice daily Pulmonary toilet with incentive spirometry flutter valve. Acute pulmonary embolism: Currently on therapeutic Lovenox. We will switch to p.o. anticoagulation on discharge CODE STATUS: DNR/DNI Attestations Medical Necessity Statement*: Patient is still in hospital for management of sepsis and COVID-pneumonia. Time Spent in Patient Care: Greater than 35 minutes (>than 50% of time spent in counselling and/or direct pt care on unit). Coding Level of Care Code Acute Emergency Room Tech for Chg Fwd Exam Detailed Diagnoses Hypoxia R09.02 Sepsis A41.9 COVID-19 U07.1 Suprapubic catheter Z93.59 Recurrent UTI N39.0 Feeding by G-tube Z93.1 Multiple sclerosis G35 Bladder stone N21.0
[2021-12-22] MEDS: pantoprazole 40 mg SDV IVP (15:15)
[2021-12-22] MEDS: enoxaparin 60 mg/0.6 mL Syringe SUBCUT (17:59)
--- NOTE | 2021-12-22 18:22 | PC.NURSE ---
Pt resting in bed, mother at bedside. VSS. No c/o pain or discomfort at this time. Mother feeds pt. Meds given per staff. Pt repositioned PRN, HOB elevated. SP cath draining freely to BSD. CLWR, will monitor.
[2021-12-22] MEDS: acetaminophen 325 mg Tablet 650 MG PO (20:22)
[2021-12-23] VITALS (28 sets, daily range): BP systolic 128–191; BP diastolic 66–126; PULSE 78–113; RESP 12–21; TEMP 36.7–37.2; O2SAT 92–97
[2021-12-23] MEDS: vancomycin 1,000 MG in sodium chloride 0.9% 250 ML 250 MG IV ×3 (00:22→23:03)
[2021-12-23] MEDS: cefepime 2,000 MG in sodium chloride 0.9% (plus) 50 ML 100 MG IV ×3 (00:24→23:03)
[2021-12-23] MEDS: amlodipine 5 mg Tablet PO ×3 (01:56→18:25)
[2021-12-23] MEDS: ipratropium-albuterol 3 mL Neb INHALATION ×4 (03:11→20:18)
[2021-12-23 05:00] LABS: Basophils % 0.1 %; Hematocrit 26.4 % (37.0-47.0); Hemoglobin 9.3 g/dL (11.5-15.3); Lymphocytes # 1.4 10^3/uL (0.8-4.8); Lymphocytes % 7.2 %; Mean Corpuscular HGB Conc 35.2 g/dL (30.0-36.0); Mean Corpuscular Hemoglobin 30.2 pg (28.0-34.0); Mean Corpuscular Volume 85.7 fl (81-99); Mean Platelet Volume 9.7 fL (7.4-10.4); Monocytes # 1.2 10^3/uL (0.2-0.9); Monocytes % 6.4 %; Neutrophils # 15.89 10^3/uL (1.8-7.7); Neutrophils % 83.5 %; Nucleated Red Blood Cells % 0 %; Platelet Count 369 10^3/cmm (130-400); Red Blood Count 3.08 10^6/uL (4.1-5.3); Red Cell Distribution Width 13.9 % (12.1-15.1)
[2021-12-23 05:28] LABS: Alanine Aminotransferase 15 U/L (0-33); Albumin Level 3.1 g/dL (3.5-5.2); Alkaline Phosphatase 100 IU/L (35-105); Anion Gap 11.3 (5-19); Aspartate Amino Transferase 9 U/L (0-32); Blood Urea Nitrogen 11 mg/dL (8-23); Calcium 8.4 mg/dL (8.5-10.5); Carbon Dioxide 28 mmol/L (22-29); Chloride 101 mmol/L (98-107); Globulin 3.3 g/dL (1.3-4.6); Glomerular Filtration Rate 125.9 mL/min (90-130); Glucose 117 mg/dL (65-115); Osmolality Calculated 284 mOsm/kg (285-295); Potassium 3.3 mmol/L (3.5-5.1); Sodium 137 mmol/L (136-145); Total Bilirubin 0.3 mg/dL (0.15-1.2); Total Protein 6.4 g/dL (6.6-8.7)
[2021-12-23] MEDS: remdesivir 100 MG in sodium chloride 0.9% (100 ml) 80 ML IV (06:01)
[2021-12-23] MEDS: enoxaparin 60 mg/0.6 mL Syringe SUBCUT (06:04)
[2021-12-23] MEDS: lidocaine 1% 5 ML in potassium chloride premix 100 ML 25 ML IV (07:37)
[2021-12-23] MEDS: citalopram 20 mg Tablet PO (08:00)
[2021-12-23] MEDS: atenolol 50 mg Tablet PO (08:00)
[2021-12-23] MEDS: baclofen 10 mg Tablet PO ×3 (08:00→20:45)
[2021-12-23] MEDS: zinc gluconate 50 mg Tablet PO (08:00)
[2021-12-23] MEDS: ascorbic acid 500 mg Tablet 1000 MG PO ×2 (08:00→17:37)
[2021-12-23] MEDS: dexamethasone 10 mg/mL INJ 6 MG IVP (08:00)
[2021-12-23] MEDS: oxybutynin 5 mg Tablet PO (08:00)
[2021-12-23] MEDS: budesonide 0.5 mg/2 mL Neb INHALATION ×2 (08:41→20:18)
[2021-12-23] MEDS: nystatin powder 15 gm Btl 1 APPLIC TOPICAL (08:56)
--- NOTE | 2021-12-23 10:10 | PC.CHAP ---
Pastoral Care Encounter/Spiritual Assessment Type of Contact [] Declined mail distribution scheme examiner visit [] Patient/Family/Request visit [] Outpatient visit [] Follow-up visit [] Physician referral [] Code/Alert [x] Routine visit [] Staff referral [] Actively dying [] Patient sleeping [] Family support [] [] Out of room [] Palliative care [] [x] Receiving care in room [] Pre-surgical visit [] Trauma [] Long length of stay [x] ICU visit [x] Other: isolated Relational/Emotional Strength [] Patient feels connected with others/family/visitors/staff [] Distress [] Loneliness/isolation [] Abandonment Spirituality of Patient [] Person of Hailey [] Attends Buddhist of their [place] [] Believes in Prayer [] Reads Bible or Yazdanism materials [] There are Spiritual issues to be addressed Cage Shift Manager Interventions [x] Prayer [] Active listening [] Non-anxious presence [] Spiritual/emotional support [] Crisis/trauma care [] Spiritual counseling [] Bereavement support [] Provided bereavement packet [] Provided Bible/devotional materials [] Provided toy/stuffed animal, coloring book to patient or family member [] Provided Communion [] Anointing/[place] [] Salvation [x] Completed spiritual assessment [] Other: Impact on Illness or Injury [] Angry [] Fearful [] Anxious [] Often cries [] Exhaustion [] Unable to work [] Unable to attend yazidi [] Unable to walk/stand [] Unable to read [] Unable to drive [] Unable to eat/drink [] Unable to sleep [] Unable to be with family [] Patient intubated [] Other: Summary Time spent with patient
--- NOTE | 2021-12-23 12:26 | PM.PN ---
Subjective Subjective: Patient was seen and examined this morning, overnight she was slightly hypertensive had to be started on amlodipine, currently she is saturating well on 4 L oxygen, has been afebrile, blood cultures have been negative so far, urine culture has been negative, urine Legionella antigen and bacterial antigen panel have been negative. Medications: Medication Review Details: Generic Name Dose Route Start Last Admin Trade Name Freq PRN Reason Stop Dose Admin Acetaminophen 650 mg 12/21/21 15:00 12/22/21 20:22 Acetaminophen 32 5 Mg Tablet PO 650 mg Q6H PRN Administration Mild/Mod Pain Or Temp >/= 101 Albuterol/Ipratrop ium 3 ml 12/21/21 15:00 12/23/21 08:41 Ipratropium-Albu terol 3 Ml Neb INHALATION 3 ml Q6H.RESPIRATORY S CH Administration Amlodipine Besylat e 5 mg 12/23/21 01:55 12/23/21 08:00 Amlodipine 5 Mg Tablet PO 5 mg DAILY RYAN Administration Ascorbic Acid 1,000 mg 12/21/21 18:00 12/23/21 08:00 Ascorbic Acid 50 0 Mg Tablet PO 1,000 mg BID RYAN Administration Atenolol 50 mg 12/21/21 13:00 12/23/21 08:00 Atenolol 50 Mg T ablet PO 50 mg DAILY RYAN Administration Baclofen 10 mg 12/21/21 09:00 12/23/21 08:00 Baclofen 10 Mg T ablet PO 10 mg TID RYAN Administration Budesonide 0.5 mg 12/21/21 20:00 12/23/21 08:41 Budesonide 0.5 M g/2 Ml Neb INHALATION 0.5 mg BID.RESPIRATORY S CH Administration Citalopram Hydrobr omide 20 mg 12/21/21 09:00 12/23/21 08:00 Citalopram 20 Mg Tablet PO 20 mg DAILY RYAN Administration Dexamethasone 6 mg 12/21/21 03:05 12/23/21 08:00 Dexamethasone 10 Mg/Ml Inj IVP 6 mg DAILY RYAN Administration Enoxaparin Sodium 60 mg 12/22/21 19:00 12/23/21 06:04 Enoxaparin 60 Mg /0.6 Ml Syringe SUBCUT 60 mg Q12H RYAN Administration Cefepime HCl 2,000 mg/ Sodium 50 mls @ 100 mls/ hr 12/21/21 12:00 12/23/21 11:55 Chloride IV Infused Q12H RYAN Infusion Protocol Remdesivir 100 mg/ Sodium 100 mls @ 100 mls /hr 12/22/21 06:00 12/23/21 07:21 Chloride IV 12/25/21 06:59 Infused Q24H RYAN Infusion Vancomycin HCl 1,0 00 mg/ 250 mls @ 250 mls /hr 12/21/21 09:00 12/23/21 08:56 Sodium Chloride IV Infused Q8H RYAN Infusion Morphine Sulfate 2 mg 12/21/21 15:00 12/22/21 22:49 Morphine 4 Mg/Ml Sdv 1 Ml IVP 2 mg Q4H PRN Administration SEVERE PAIN Nystatin 1 applic 12/21/21 09:00 12/23/21 08:56 Nystatin Powder 15 Gm Btl TOPICAL 1 applic DAILY RYAN Administration Oxybutynin Chlorid e 5 mg 12/21/21 09:00 12/23/21 08:00 Oxybutynin 5 Mg Tablet PO 5 mg DAILY RYAN Administration Pantoprazole Sodiu m 40 mg 12/21/21 16:00 12/22/21 15:15 Pantoprazole 40 Mg Sdv IVP 40 mg Q24H RYAN Administration Propylthiouracil 50 mg 12/21/21 13:00 12/23/21 08:12 Propylthiouracil 50 Mg Tablet PO Not Given DAILY RYAN Zinc Gluconate 50 mg 12/22/21 09:00 12/23/21 08:00 Zinc Gluconate 5 0 Mg Tablet PO 50 mg DAILY RYAN Administration Vitals/I&O/Wt Last Vital Signs Temp 98.0 F 12/23/21 11:00 Pulse 83 12/23/21 12:00 Resp 19 H 12/23/21 12:00 BP 144/86 12/23/21 12:00 Pulse Ox 92 12/23/21 12:00 12/22/21 12/23/21 12/23/21 22:59 06:59 14:59 Intake Total 570 / 1430 360 / 1790 985 / 985 Output Total 1600 / 1600 Balance 570 / 1430 -1240 / 190 985 / 985 Weight last 48 hrs Weight 62.46 kg Weight 59.965 kg Physical Exam HENMT: COMMON NORMALS: normocephalic and atraumatic HEAD & SCALP: normocephalic and atraumatic Resp: COMMON NORMALS: clear to auscultation bilaterally EFFORT & INSPECTION: Yes symmetric chest movement AUSCULTATION: clear to auscultation bilaterally Cardio: COMMON NORMALS: regular rate, regular rhythm, S1 normal heart sound present, S2 normal heart sound present, No gallops present (Cardio), No murmurs present (Cardio), No rub (Cardio) and Peripheral pulses 2+ throughout RATE: regular rate RHYTHM: regular rhythm HEART SOUNDS: S1 normal heart sound present and S2 normal heart sound present PERIPHERAL PULSES: Peripheral pulses 2+ throughout GI: COMMON NORMALS: Normal to inspection, nondistended, normoactive bowel sounds present, Soft to palpation, non-tender, No hepatosplenomegaly present and no masses AUSCULTATION: Yes normoactive bowel sounds PALPATION: Yes Soft to palpation and Yes No hepatosplenomegaly present RECTAL EXAM: deferred Extremity: COMMON NORMALS: no clubbing, cyanosis or edema and no pedal edema Data : 12/23/21 04:05 12/23/21 04:05 Micro: Microbiology 12/20/21 18:05 Urine Culture - Final Urine,Clean Catch A&P Assessment and plan (1) Hypoxia: Status: Acute (2) Sepsis: Status: Acute (3) COVID-19: Status: Acute (4) Suprapubic catheter: Status: Acute (5) Recurrent UTI: Status: Acute (6) Feeding by G-tube: Status: Acute (7) Multiple sclerosis: Status: Acute (8) Bladder stone: Status: Acute Plan Sepsis secondary to pneumonia: History of recurrent UTI. (VRE Enterococcus, ESBL E. coli) Blood cultures have been negative so far, urine culture has been negative, urine Legionella antigen and bacterial antigen panel have been negative. continue with vancomycin and cefepime. For now Hypoxia secondary to COVID-19 pneumonia: Mild to moderate disease. CT angio chest PE protcl; Small filling defects in a LEFT lower lobe segmental and subsegmental pulmonary artery suspicious for small distal pulmonary embolus. No other visualized filling defects.Proximal main pulmonary arteries are normal. Compressive atelectasis/consolidation in the lung bases. monitor inflammatory markers including CRP, D-dimer every 48 hours. Dexamethasone 6 mg daily. Remdesivir to finish a 3 to 5-day course. Vitamin C, zinc. Possible Actemra if needed DuoNeb every 6 hour, budesonide twice daily Pulmonary toilet with incentive spirometry flutter valve. Acute pulmonary embolism: Currently on therapeutic Lovenox. We will switch to p.o. anticoagulation on discharge CODE STATUS: DNR/DNI Attestations Medical Necessity Statement*: Patient is still in hospital for management of COVID-pneumonia, sepsis. Time Spent in Patient Care: Greater than 35 minutes (>than 50% of time spent in counselling and/or direct pt care on unit). Coding Level of Care Code Acute Senior Data Analyst for Chg Fwd Exam Detailed Diagnoses Hypoxia R09.02 Sepsis A41.9 COVID-19 U07.1 Suprapubic catheter Z93.59 Recurrent UTI N39.0 Feeding by G-tube Z93.1 Multiple sclerosis G35 Bladder stone N21.0
[2021-12-23] MEDS: pantoprazole 40 mg SDV IVP (15:23)
[2021-12-23 17:32] LABS: Vancomycin Trough 26.2 ug/mL (10-15)
[2021-12-23] MEDS: guaiFENesin 600 mg Tablet PO (17:37)
--- NOTE | 2021-12-23 18:22 | PC.NURSE ---
PT resting in bed. BP elevated, notified, new orders given. No other issues, urine draining freely from s/p cath. Pt repositioned q2h and PRN. 3LNC, will monitor.
[2021-12-23] MEDS: acetylcysteine 200 mg/mL SDV 4 mL 100 MG INHALATION (23:54)
[2021-12-24] VITALS (20 sets, daily range): BP systolic 130–170; BP diastolic 69–104; PULSE 75–108; RESP 15–21; TEMP 36.8–36.9; O2SAT 94–97
[2021-12-24] MEDS: acetylcysteine 200 mg/mL SDV 4 mL 100 MG INHALATION ×2 (02:38→09:10)
[2021-12-24] MEDS: ipratropium-albuterol 3 mL Neb INHALATION ×2 (02:38→09:10)
[2021-12-24 05:32] LABS: D Dimer 0.81 ug/mIFEU (0-0.59)
[2021-12-24 05:40] LABS: C Reactive Protein 48.1 mg/L (0.0-4.9)
[2021-12-24] MEDS: remdesivir 100 MG in sodium chloride 0.9% (100 ml) 80 ML IV (05:45)
[2021-12-24] MEDS: guaiFENesin 600 mg Tablet PO ×2 (07:58→17:07)
[2021-12-24] MEDS: oxybutynin 5 mg Tablet PO (07:58)
[2021-12-24] MEDS: citalopram 20 mg Tablet PO (07:58)
[2021-12-24] MEDS: amlodipine 5 mg Tablet 10 MG PO (07:58)
[2021-12-24] MEDS: baclofen 10 mg Tablet PO ×2 (07:58→14:51)
[2021-12-24] MEDS: ascorbic acid 500 mg Tablet 1000 MG PO ×2 (07:59→17:07)
[2021-12-24] MEDS: dexamethasone 10 mg/mL INJ 6 MG IVP (07:59)
[2021-12-24] MEDS: zinc gluconate 50 mg Tablet PO (07:59)
[2021-12-24] MEDS: atenolol 50 mg Tablet PO (07:59)
[2021-12-24] MEDS: budesonide 0.5 mg/2 mL Neb INHALATION (09:10)
--- NOTE | 2021-12-24 10:41 | PC.CHAP ---
Pastoral Care Encounter/Spiritual Assessment Type of Contact [] Declined business analysis specialist visit [] Patient/Family/Request visit [] Outpatient visit [] Follow-up visit [] Physician referral [] Code/Alert [x] Routine visit [] Staff referral [] Actively dying [] Patient sleeping [] Family support [] [] Out of room [] Palliative care [] [x] Receiving care in room [] Pre-surgical visit [] Trauma [] Long length of stay [x] ICU visit [] Other: Relational/Emotional Strength [] Patient feels connected with others/family/visitors/staff [] Distress [] Loneliness/isolation [] Abandonment Spirituality of Patient [] Person of Hailey [] Attends Buddhism of their [place] [] Believes in Prayer [] Reads Bible or Adventism materials [] There are Spiritual issues to be addressed Senior Caregiver Interventions [x] Prayer [] Active listening [] Non-anxious presence [] Spiritual/emotional support [] Crisis/trauma care [] Spiritual counseling [] Bereavement support [] Provided bereavement packet [] Provided Bible/devotional materials [] Provided toy/stuffed animal, coloring book to patient or family member [] Provided Communion [] Anointing/[place] [] Salvation [x] Completed spiritual assessment [] Other: Impact on Illness or Injury [] Angry [] Fearful [] Anxious [] Often cries [] Exhaustion [] Unable to work [] Unable to attend faith [] Unable to walk/stand [] Unable to read [] Unable to drive [] Unable to eat/drink [] Unable to sleep [] Unable to be with family [] Patient intubated [] Other: Summary Time spent with patient
[2021-12-24] MEDS: vancomycin 1,000 MG in sodium chloride 0.9% 250 ML 250 MG IV (11:47)
[2021-12-24] MEDS: cefepime 2,000 MG in sodium chloride 0.9% (plus) 50 ML 100 MG IV (11:47)
--- NOTE | 2021-12-24 13:28 | PC.NURSE ---
Report called to [facility] to Ileana STAPLE PROCESSING MACHINE OPERATOR. Central line removed, pressure dressing in place. Awaiting ride.
--- NOTE | 2021-12-24 14:36 | PC.SOCIAL ---
IMM UPDATED IMM dated and initialed copy placed in chart and copy given to patient
--- NOTE | 2021-12-24 17:41 | PM.DCS ---
Discharge Providers Date of Admission: 12/21/21 13:32 Date of Discharge: December 24, 2021 Attending Provider at Admission: Rocky Pool MD Attending Provider at Discharge: Jermain Fernandez MD Primary Care Provider: Hipolito Rothman DO Diagnoses at Discharge Discharge Diagnosis (1) Hypoxia: (2) Sepsis: (3) COVID-19: (4) Suprapubic catheter: (5) Recurrent UTI: (6) Feeding by G-tube: (7) Multiple sclerosis: (8) Bladder stone: Reason for Visit Reason for Visit: sob covid positive Hospital Course Hospital Course HPI:Rocky Pool MD 61 year old female with known medical history of multiple sclerosis, quadriplegia, bedbound, suprapubic catheter, PEG tube placement, h/o sepsis with UTI 2/2 ESBL Pseudomonas, VRE enterococcus, Proteus and Enterobacter in blood, [facility] resident was sent in to the ER yesterday. History taken to the mother who is at bedside.? Mother is the primary caregiver.? As per the mother everybody in the penitentiary is having COVID.? Patient tested positive for COVID a week ago and since she has been requiring oxygen supplementation.? Today is Wednesday.? At the penitentiary she was requiring 3 L.? As per documentation her saturations were in high 80s so she was sent to the ER.? Mother is not really happy why the patient is in the ER not at penitentiary.? She thinks patient can be treated at penitentiary properly.? Mother thinks patient is breathing at her baseline.? Patient overnight was set up for transfer to [facility] for further treatment of COVID-19 and multiple sclerosis. Currently on my examination patient did start was on 5 L saturating 98% which was turned down to 2 L when she was still saturating 96%.? Both patient and mother are declining transfer to a different center and would want to stay at [facility] for further treatment.? We discussed the possible complications of treatment and the patient of COVID-19 and multiple sclerosis.? Patient signals and mother states that they are okay with a complication but would want to continue treatment at [facility]. Patient is a suprapubic catheter which was changed in the last 3 weeks.? She is getting feeding through PEG tube.? As per mother she takes pur?ed diet mixed with water through the PEG tube with 8 to 10 ounces of free water flushes with each meal. Hospital course: Patient was admitted for the management of COVID-pneumonia and possible sepsis, She was kept on COVID protocol : Remdesivir dexamethasone, inflammatory markers were trended, DuoNebs, supplemental oxygen as needed, empirically she was kept on broad-spectrum antibiotics, therapeutic anticoagulation with Lovenox,CTA chest: Showed small pulmonary embolism, lower extremity Doppler vein was negative for DVT,Blood cultures were negative, urine culture was negative, urine Legionella antigen, bacterial antigen panel was negative. Patient fairly responded well to above medical management at the time of discharge she qualified for 2 L supplemental home oxygen. Sepsis was ruled out on discharge. Patient was [facility] in [facility] condition to [facility]. Physical Exam HENMT: COMMON NORMALS: normocephalic and atraumatic HEAD & SCALP: normocephalic and atraumatic Resp: COMMON NORMALS: clear to auscultation bilaterally EFFORT & INSPECTION: Yes symmetric chest movement AUSCULTATION: clear to auscultation bilaterally Cardio: COMMON NORMALS: regular rate, regular rhythm, S1 normal heart sound present, S2 normal heart sound present, No gallops present (Cardio), No murmurs present (Cardio), No rub (Cardio) and Peripheral pulses 2+ throughout RATE: regular rate RHYTHM: regular rhythm HEART SOUNDS: S1 normal heart sound present and S2 normal heart sound present PERIPHERAL PULSES: Peripheral pulses 2+ throughout GI: COMMON NORMALS: Normal to inspection, nondistended, normoactive bowel sounds present, Soft to palpation, non-tender, No hepatosplenomegaly present and no masses AUSCULTATION: Yes normoactive bowel sounds PALPATION: Yes Soft to palpation and Yes No hepatosplenomegaly present RECTAL EXAM: deferred Extremity: COMMON NORMALS: no clubbing, cyanosis or edema and no pedal edema Discharge Data Studies Completed and Pending Completed Studies During Hospitalization Category Date Time Status CT angio chest PE protcl [id number] Urgent Cat Scan 12/22/21 13:[address] chest abdomen pelvis [[place] [id number] Cat Scan 12/20/21 18:29 Completed ] Urgent CT head wo con* [id number] Urgent Cat Scan 12/20/21 18:29 Completed XR chest 1V portable [id number] Urgent Exams 12/20/21 16:22 Completed XR pelvis 1-2V* [id number] Stat Exams 12/20/21 23:49 [place] [id number] Routine Ultrasound 12/21/21 13:03 Completed CV. echo complete* [id number] Routine Ultrasound 12/21/21 13:02 Completed Pending at discharge Category Date Time Status Blood Culture Stat Lab 12/20/21 23:35 Results Sputum Culture and Gram Stain Stat Lab 12/21/21 13:09 Uncollected Radiology Impressions Chest X-Ray 12/20/21 16:22 IMPRESSION: Probable right medial basilar opacity and left lower lobe collapse as described above. Chest/Abdomen/Pelvis CT 12/20/21 18:29 IMPRESSION: Bilateral lower lobe pneumonia. IMPRESSION: 1. There are bladder stones. A percutaneous bladder catheter is in place. 2. There is mucosal thickening of the distal rectosigmoid colon. Differential includes nonspecific colitis versus neoplasm. 3. There are large right renal calculi and mild fullness of the right renal pelvis. Head CT 12/20/21 18:29 IMPRESSION: No acute intracranial findings. Pelvis X-Ray 12/20/21 23:49 IMPRESSION: Satisfactory right femoral line position. Chest CTA 12/22/21 13:07 IMPRESSION: 1. Small filling defects in a LEFT lower lobe segmental and subsegmental pulmonary artery suspicious for small distal pulmonary embolus. No other visualized filling defects. 2. Proximal main pulmonary arteries are normal. 3. Compressive atelectasis/consolidation in the lung bases is unchanged compared to December 20, 2021. 4. No other significant interval changes. Notified Dr. Jim ELY at 12/22/2021 11:14 AM. Laboratory Results WBC 19.0 10^3/uL (4.0-10.0) H 12/23/21 04:05 RBC 3.08 10^6/uL (4.1-5.3) L 12/23/21 04:05 Hgb 9.3 g/dL (11.5-15.3) L 12/23/21 04:05 Hct 26.4 % (37.0-47.0) L 12/23/21 04:05 MCV 85.7 fl (81-99) 12/23/21 04:05 MCH 30.2 pg (28.0-34.0) 12/23/21 04:05 MCHC 35.2 g/dL (30.0-36.0) 12/23/21 04:05 RDW 13.9 % (12.1-15.1) 12/23/21 04:05 Plt Count 369 10^3/cmm (130-400) D 12/23/21 04:05 MPV 9.7 fL (7.4-10.4) 12/23/21 04:05 Neut % (Auto) 83.5 % 12/23/21 04:05 Lymph % (Auto) 7.2 % 12/23/21 04:05 Howell % (Auto) 6.4 % 12/23/21 04:05 Eos % (Auto) 0.0 % 12/23/21 04:05 Baso % (Auto) 0.1 % 12/23/21 04:05 Neut # (Auto) 15.89 10^3/uL (1.8-7.7) H 12/23/21 04:05 Lymph # (Auto) 1.4 10^3/uL (0.8-4.8) 12/23/21 04:05 Howell # (Auto) 1.2 10^3/uL (0.2-0.9) H 12/23/21 04:05 Eos # (Auto) 0.0 10^3/uL (0.0-0.8) 12/23/21 04:05 Baso # (Auto) 0.0 10^3/uL (0.0-0.1) 12/23/21 04:05 Nucleated RBC % (auto) 0 % 12/23/21 04:05 Nucleated RBCs # 0.0 /100WBC 12/23/21 04:05 D-Dimer 0.81 ug/mIFEU (0-0.59) H 12/24/21 04:28 Specimen Type Arterial 12/20/21 17:05 Sample Site Radial, right 12/20/21 17:05 ABG pH 7.45 (7.35-7.45) 12/20/21 17:05 ABG pCO2 36.0 mmHg (35-45) 12/20/21 17:05 ABG pO2 82.1 mmHg (80.0-100.0) 12/20/21 17:05 ABG HCO3 25.0 mmol/L (22-26) 12/20/21 17:05 ABG Base Excess 1.2 mmol/L (-2.0-2.0) 12/20/21 17:05 Bernard Test Pos 12/20/21 17:05 Hematocrit 40.8 % (37-47) 12/20/21 17:05 O2 Delivery Device Nc 12/20/21 17:05 O2 Liters/Min 5.0 % 12/20/21 17:05 FiO2 40.0 % 12/20/21 17:05 Plsql Developer ID Gd 12/20/21 17:05 Sodium 137 mmol/L (136-145) 12/23/21 04:05 Potassium 3.3 mmol/L (3.5-5.1) L 12/23/21 04:05 Chloride 101 mmol/L (98-107) 12/23/21 04:05 Carbon Dioxide 28 mmol/L (22-29) 12/23/21 04:05 Anion Gap 11.3 (5-19) 12/23/21 04:05 BUN 11 mg/dL (8-23) 12/23/21 04:05 Creatinine 0.5 mg/dL (0.5-0.9) 12/23/21 04:05 GFR Calculation 125.9 mL/min (90-130) 12/23/21 04:05 Glucose 117 mg/dL (65-115) H 12/23/21 04:05 POC Glucose 162 mg/dL (70-110) H 12/22/21 11:04 Estimat Average Glucose 71 12/22/21 05:53 Hemoglobin A1c 4.1 % (4.0-6.0) 12/22/21 05:53 Calculated Osmolality 284 mOsm/kg (285-295) L 12/23/21 04:05 Lactic Acid 0.9 mmol/L (0.5-2.2) 12/21/21 13:45 Lactate 1.2 mmol/L (0.5-2.2) 12/20/21 23:35 Calcium 8.4 mg/dL (8.5-10.5) L 12/23/21 04:05 Magnesium 1.7 mg/dL (1.7-2.3) 12/20/21 23:35 Iron 19 ug/dL (37-145) L 12/21/21 13:45 TIBC 117 mcg/dl 12/21/21 13:45 % Saturation 16.2 % (20-50) L 12/21/21 13:45 Unsat Iron Binding 98 ug/dL (112-347) L 12/21/21 13:45 Total Bilirubin 0.3 mg/dL (0.15-1.2) 12/23/21 04:05 AST 9 U/L (0-32) 12/23/21 04:05 ALT 15 U/L (0-33) 12/23/21 04:05 Alkaline Phosphatase 100 IU/L (35-105) 12/23/21 04:05 Lactate Dehydrogenase 182 U/L (135-214) 12/21/21 13:45 Troponin T Baseline 14 ng/L (0-10) H 12/20/21 23:35 Troponin T 120 Minute 12.31 ng/L (0-10) H 12/21/21 02:00 Delta Troponin T -1.69 ABS# (0-10) L 12/21/21 02:00 Troponin T Hi Sens 6Hr 12.91 ng/L (0-10) H 12/20/21 06:13 Troponin T Hi Sens 6Hr Delta -1.09 ng/L (0-12) L 12/20/21 06:13 C-Reactive Protein 48.1 mg/L (0.0-4.9) H 12/24/21 04:28 NT-Pro-B Natriuret Pep 490 pg/mL (0-125) H 12/20/21 23:35 Total Protein 6.4 g/dL (6.6-8.7) L 12/23/21 04:05 Albumin 3.1 g/dL (3.5-5.2) L 12/23/21 04:05 Globulin 3.3 g/dL (1.3-4.6) 12/23/21 04:05 Triglycerides Cancelled 12/22/21 04:20 Cholesterol Cancelled 12/22/21 04:20 LDL Cholesterol, Calc Cancelled 12/22/21 04:20 Total VLDL Cholesterol Cancelled 12/22/21 04:20 HDL Cholesterol Cancelled 12/22/21 04:20 Cholesterol/HDL Ratio Cancelled 12/22/21 04:20 Vitamin B12 > 2000 pg/mL (232-1245) H 12/21/21 13:45 Folate 8.7 ng/mL (4.8-37.3) 12/21/21 13:45 Procalcitonin 0.18 ng/mL (0-0.5) 12/21/21 13:45 TSH 0.66 uIU/mL (0.27-4.20) 12/21/21 13:45 Urine Color Lisa (Yellow) 12/20/21 18:05 Urine Appearance Hazy (CLEAR) A 12/20/21 18:05 Urine pH 6.5 (5-7) 12/20/21 18:05 Ur Specific [place] 1.015 (1.005-1.030) 12/20/21 18:05 Urine Protein 1+ (Negative) H 12/20/21 18:05 Urine Glucose (UA) Norm (Normal) 12/20/21 18:05 Urine Ketones 3+ (Negative) H 12/20/21 18:05 Urine Blood 3+ (Negative) H 12/20/21 18:05 Urine Nitrate Positive (Negative) H 12/20/21 18:05 Urine Bilirubin Neg (Negative) 12/20/21 18:05 Urine Urobilinogen Norm mg/dL (Negative) 12/20/21 18:05 Ur Leukocyte Esterase 2+ (Negative) H 12/20/21 18:05 Urine RBC 25-40 /hpf (0-2) H 12/20/21 18:05 Urine WBC 80-100 /hpf (0-5) H 12/20/21 18:05 Ur Squamous Epith Cells 0-4 /hpf (0-5) H 12/20/21 18:05 Amorphous Sediment Not Reportable 12/20/21 18:05 Urine Bacteria 3+ /hpf (NONE) H 12/20/21 18:05 Vancomycin Trough 26.2 ug/mL (10-15) H* 12/23/21 16:20 Vitals Last Vital Signs Temp 98.2 F 12/24/21 12:00 Pulse 86 12/24/21 16:00 Resp 18 12/24/21 16:00 BP 147/85 12/24/21 16:00 Pulse Ox 95 12/24/21 16:00 Discharge Plan Discharge Patient Disposition: Xfer LTC Condition: Stable Prescriptions: New zinc gluconate 50 mg Tablet 50 mg PO DAILY 7 Days Qty: 7 0RF Mucinex 600 mg Tablet Extended Release 12hr 600 mg PO BID 7 Days Qty: 14 0RF Pulmicort Flexhaler 90 mcg/actuation aerosol powdr breath activated 1 inh inhalation BID Qty: 1 0RF Vitamin C 500 mg Tablet 1,000 mg PO BID 7 Days Qty: 28 0RF amlodipine 10 mg tablet 10 mg PO DAILY Qty: 30 0RF Continued albuterol sulfate 2.5 mg /3 mL (0.083 %) solution for nebulization 2.5 mg inhalation Q4H PRN (Reason: Shortness Of Breath) 0RF acetaminophen 650 mg suppository 650 mg RI Q4H PRN (Reason: pain/fever) 0RF bisacodyl [Dulcolax (bisacodyl)] 10 mg suppository 10 mg RI DAILY PRN (Reason: Constipation) 0RF Pepto-Bismol Max St 525 mg/15 mL suspension 525 mg PO Q8H PRN (Reason: Indigestion) 0RF Rx Instructions: do not exceed 8 doses in a 24 hour period cholecalciferol (vitamin D3) 25 mcg (1,000 unit) capsule 25 mcg PO DAILY 0RF citalopram 20 mg tablet 20 mg PO DAILY 0RF sennosides-docusate sodium [Senna Plus] 8.6-50 mg tablet 2 tab-cap PO Q12H PRN (Reason: Constipation) 0RF ferrous sulfate 300 mg (60 mg iron)/5 mL liquid 900 mg PO DAILY 0RF garlic 200 mg tablet 200 mg PO DAILY 0RF glycopyrrolate 1 mg tablet 1 mg PO DAILY 0RF Lactobacillus acidophilus Capsule 10 mg PO DAILY 0RF Rx Instructions: administer with large glass of water magnesium hydroxide [[place] Milk of Magnesia] 400 mg/5 mL suspension 30 ml PO DAILY PRN (Reason: Constipation) 0RF methenamine hippurate 1 gram tablet 1 gm PO BID 0RF evening primrose oil 500 mg capsule 500 mg PO DAILY 0RF Rx Instructions: give with meal/snack nystatin 100,000 unit/gram powder 1 applic TOPICAL DAILY 0RF Lubricant Eye Drops 0.5 % dropperette 1 drop ophthalmic (eye) Q24H PRN (Reason: Dry Eyes) 0RF oxybutynin chloride 5 mg tablet 5 mg PO DAILY 0RF polyethylene glycol 3350 17 gram/dose powder 17 gm PO Q12H PRN (Reason: Constipation) 0RF propylthiouracil 50 mg tablet 50 mg PO DAILY 0RF simethicone [Gas Relief (simethicone)] 125 mg capsule 125 mg PO DAILY 0RF sodium chloride [Children's Saline Nasal [place]] 0.65 % aerosol,spray 1 spray INTRANASAL Q6H PRN (Reason: allergies) 0RF ibuprofen 100 mg/5 mL suspension 400 mg PO Q6H PRN (Reason: Pain) 0RF cinnamon bark [Cinnamon] 500 mg capsule 500 mg PO DAILY 0RF baclofen 10 mg tablet 10 mg PO TID 0RF Vitamin C 1,000 mg Tablet 1,000 mg PO BID 0RF potassium chloride 20 mEq/15 mL liquid 20 meq PO DAILY 0RF atenolol 50 mg Tablet 50 mg PO DAILY 0RF Discharge Orders: Discharge Order (Routine); Ordered 12/24/21 Ordered By: Jermain Fernandez Referrals: Hipolito Rothman DO [Primary Care Provider] - 2 weeks Patient Instructions: Opioid Safety Discharge Attestations Time Spent in Discharge Care*: less than 30 min Quality Metrics Clinical Quality Measures [ No reported AMI, CVA or VTE this stay] Coding Level of Care Code Acute Chg FW DC note Exam Detailed Diagnoses Hypoxia R09.02 Sepsis A41.9 COVID-19 U07.1 Suprapubic catheter Z93.59 Recurrent UTI N39.0 Feeding by G-tube Z93.1 Multiple sclerosis G35 Bladder stone N21.0
--- NOTE | 2021-12-24 17:54 | PC.NURSE ---
1750 Pt loaded on to stretcher. O2 in place.
== END 2021-12-24 17:50 | disposition skilled nursing facility (03) | DRG 177 ==
LOC: ER 12-21 06:35 → ICU 12-21 13:58
PROVIDERS: Emergency Medicine; Admitting Provider Student in an Organized Health Care Education/Training Program; Emergency Provider Emergency Medicine; PCP Internal Medicine; Visit Provider Internal Medicine
DX: U07.1 COVID-19 (principal); G82.50 Quadriplegia, unspecified; J12.82 Pneumonia due to coronavirus disease 2019; J96.01 Acute respiratory failure with hypoxia; I26.99 Other pulmonary embolism without acute cor pulmonale; T83.518A Infection and inflammatory reaction due to other urinary catheter, initial encounter; G35 Multiple sclerosis; Z96.0 Presence of urogenital implants; Z87.440 Personal history of urinary (tract) infections; Z93.1 Gastrostomy status; Z74.01 Bed confinement status; N21.0 Calculus in bladder; N20.0 Calculus of kidney; Y82.9 Unspecified medical devices associated with adverse incidents; Z79.51 Long term (current) use of inhaled steroids; Z66 Do not resuscitate; I10 Essential (primary) hypertension
CPT/HCPCS: 36415; 36416; 36556; 36592; 36600; 70450; 71045; 71250; 71275; 72170; 74176; 80053; 80202; 81001; 82607; 82746; 82803; 82962; 83036; 83540; 83550; 83605; 83615; 83735; 83880; 84145; 84443; 84484; 85025; 85378; 86140; 86403; 87040; 87086; 87449; 93005; 93306; 93970; 94640; 96365; 96367; 96372; 96375; 99285; C1751; C9113; J0692; J1100; J1650; J2270; J3010; J3370; J3480; J7030; J7050; J7608; J7626; Q9967

== ENCOUNTER 2022-03-02 13:23 | Outpatient (CLI) | payer MEDICARE, MEDICAID, SELFPAY ==
--- NOTE | 2022-03-02 13:35 | XR_ITS ---
WS: [id number] Exam: XR KUB [id number] Date/Time of Exam: 03/02/2022 1:39 PM Reason For Exam: bladder stone Comparison 11/29/2019. No bowel obstruction or free air. Prominent laminated circular calcifications seen in the pelvis appa rently representing bladder stones. There is also a catheter in place ending in the mid pelvic region . Staghorn calculus in the right kidney. There appears to be a gastrotomy feeding tube in the body th e stomach. No sign of organ enlargement. Bony structures are osteopenic. XR/XR KUB [id number] IMPRESSION: 1. No acute finding. 2. Large bladder stones with probable percutaneous bladder catheter. 3. Right staghorn calculus. Gastrotomy feeding tube in place as noted above.
== END 2022-03-02 13:24 | disposition home or self-care (01) ==
LOC: RAD 13:26
PROVIDERS: PCP Internal Medicine; Visit Provider Urology
DX: N21.0 Calculus in bladder (principal)
CPT/HCPCS: 74018; 99213